=== PATIENT | male | born 1955 | race Caucasian/White ===

== ENCOUNTER 2020-01-31 11:29 | Inpatient (IN) ==
[2020-01-31] MEDS ORDERED: 0.9 % SODIUM CHLORIDE 1,000 ML IV ONE ×2 (11:49→13:16)
--- NOTE | 2020-01-31 11:58 | Emergency Department Note ---
HPI General Chief complaint: Blood Sugar Problem Stated complaint: High blood glucose Time Seen by Provider: 01/31/20 11:48 Source: EMS Mode of arrival: EMS Limitations: no limitations History of Present Illness HPI Narrative: Narrative: 64-year-old male presents the emergency department with elevated blood sugar. Patient is a dialysis patient history of CKD as well as a type I diabetic. Patient is always on since he has been taking normally runs around 160 today they checked it and said it was reading high. He said there is been no illnesses or sicknesses leading. He was due to have his dialysis done today. He did not make it as they sent him here instead. Patient otherwise having no other symptoms that he actually feels well just feels weak and tired and feels like he is needs to get his blood sugar more under control. Patient otherwise has no other complaints. Related Data Home Medications Medication Instructions Recorded Confirmed Insulin Syringe 1/2 mL 30 x /" 1 unit MISCELLANE .COMPLEX 08/20/14 01/09/20 aspirin 81 mg tablet,delayed 81 mg PO QDAY tab 08/20/14 01/09/20 release blood sugar diagnostic 08/20/14 01/09/20 cyanocobalamin (vitamin B-12) 1,000 mcg PO QDAY tab 08/20/14 01/09/20 1,000 mcg tablet B complex-vitamin C-folic acid 0.8 1 tab PO QDAY 12/16/17 01/09/20 mg tablet insulin syringe-needle U-100 03/03/18 01/09/20 pen needle, diabetic 03/03/18 01/09/20 clopidogrel 75 mg tablet 75 mg PO QDAY 11/22/18 01/09/20 acetaminophen 650 mg 1,300 mg PO QHS tab 08/01/19 01/09/20 tablet,extended release insulin glargine 100 unit/mL (3 6 unit SUB-Q BID ml 01/09/20 01/09/20 mL) subcutaneous pen Previous Rx's Medication Instructions Recorded simvastatin 40 mg tablet 40 mg PO QPM #90 tab 10/26/16 glucagon HCl 1 mg/mL solution for 1 mg IM ONCE #1 each 03/24/18 injection buprenorphine 7.5 mcg/hour weekly 1 patch TRANSDERMA Q7D #12 each 11/28/19 transdermal patch ramelteon 8 mg tablet 8 mg PO QHS PRN 30 Days #30 tab 12/21/19 trazodone 50 mg tablet 100 mg PO QHS #180 tab 12/26/19 mirtazapine 30 mg tablet 30 mg PO QHS 90 Days #90 tab 01/03/20 insulin lispro 100 unit/mL See Rx Instructions SUB-Q TID #15 01/09/20 subcutaneous pen ml Allergies Allergy/AdvReac Type Severity Reaction Status Date / Time Zolpidem [From Ambien] AdvReac Mild Insomnia Verified 01/09/20 09:52 Review of Systems ROS ROS Narrative: Narrative: All systems ED: reviewed and negative except as stated. PFSH Narrative Patient History Narrative: Narrative: Medical/Surgical/Family History All Active Problems (Updated 01/31/20 @ 14:25 by Donal Fry DO) Hyperosmolar hyperglycemic state (HHS) (Acute) Acute hyperkalemia (Acute) Poor sleep hygiene (Acute) Circadian rhythm disorder (Acute) Chewing tobacco nicotine dependence (Chronic) CKD (chronic kidney disease) stage V requiring chronic dialysis (Chronic) History of amputation of great toe (Chronic) Foot ulcer (Chronic) Paresthesias (Chronic) Numbness (Chronic) Muscle cramps (Chronic) Opioid dependence (Chronic) Exostosis (Chronic) Onychomycosis (Chronic) Subungual hematoma (Chronic) Callus of foot (Chronic) Skin fissure (Chronic) Hammer toe (Chronic) Chronic osteomyelitis involving ankle and foot (Chronic) Chronic renal insufficiency (Chronic) Arthropathy associated with neurological disorder (Chronic) Polyneuropathy (Chronic) 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) Chronic pain syndrome (Chronic) Vitamin B12 deficiency (Chronic) Type 1 diabetes mellitus with renal manifestations, uncontrolled (Chronic) Tobacco use (Chronic) Legal blindness, as defined in [place] (Chronic) Glaucoma (Chronic) Diabetic retinopathy (Chronic) Contusion of eyeball and orbital tissues, right eye, initial encounter (Chronic) Skin ulcer (Chronic) Chronic ulcer of left heel limited to breakdown of skin (Chronic) Diabetes mellitus with peripheral circulatory disorder (Chronic) History of MRSA infection (Chronic) 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) History of amputation of right foot (Chronic) Pressure ulcer of right heel, stage 2 (Chronic) End-stage renal disease (Chronic) History of hypoglycemia (Chronic) Osteomyelitis of left foot (Chronic) Diabetic foot ulcer (Chronic) Depression (Chronic) Status post amputation of left great toe (Chronic) History of oral surgery (Chronic) History of knee surgery (Chronic) History of hip surgery (Chronic) History of orthopedic surgery (Chronic) History of eye surgery (Chronic) History of colonoscopy (Chronic) History of appendectomy (Chronic) Vitamin D deficiency (Chronic) Chronic toe ulcer (Chronic) Secondary hyperparathyroidism (Chronic) Retinopathy, diabetic, background (Chronic) Renal osteodystrophy (Chronic) Proteinuria (Chronic) DM polyneuropathy (Chronic) Osteoarthrosis, hand (Chronic) Obesity (Chronic) Insomnia (Acute) Hyponatremia (Chronic) Hypertension, essential (Chronic) Hyperlipemia (Chronic) Erectile dysfunction (Chronic) Diabetes mellitus type 1 (Chronic) Depressive disorder (Chronic) Chronic pain (Chronic) Benign prostatic hyperplasia without lower urinary tract symptoms (Chronic) Blindness, legal (Chronic) Amputated toe (Chronic) Amputation, traumatic, toes (Chronic) Medical History 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) Amputated toe (Chronic) 1996-right transmetatarsal 1991- left big toe amputation Amputation, traumatic, toes (Chronic) Arthropathy associated with neurological disorder (Chronic) Benign prostatic hyperplasia without lower urinary tract symptoms (Chronic) Blindness, legal (Chronic) 1992 Callus of foot (Chronic) Both Chewing tobacco nicotine dependence (Chronic) Chronic osteomyelitis involving ankle and foot (Chronic) Chronic pain (Chronic) LE wounds, back pain, neuropathies Chronic pain syndrome (Chronic) Chronic renal insufficiency (Chronic) Chronic toe ulcer (Chronic) Chronic ulcer of left heel limited to breakdown of skin (Chronic) Circadian rhythm disorder (Acute) CKD (chronic kidney disease) stage V requiring chronic dialysis (Chronic) Contusion of eyeball and orbital tissues, right eye, initial encounter (Chronic) Dehydration (Resolved) Depression (Chronic) Depressive disorder (Chronic) Diabetes mellitus type 1 (Chronic) Diabetes mellitus with peripheral circulatory disorder (Chronic) Diabetic foot ulcer (Chronic) Diabetic retinopathy (Chronic) DM polyneuropathy (Chronic) End-stage renal disease (Chronic) Erectile dysfunction (Chronic) Exostosis (Chronic) Foot ulcer (Chronic) Glaucoma (Chronic) Hammer toe (Chronic) History of amputation of great toe (Chronic) Left History of MRSA infection (Chronic) Hyperlipemia (Chronic) Hypertension, essential (Chronic) Hyponatremia (Chronic) Insomnia (Acute) Legal blindness, as defined in [place] (Chronic) Muscle cramps (Chronic) Numbness (Chronic) Obesity (Chronic) Onychomycosis (Chronic) Toenail Opioid dependence (Chronic) Osteoarthrosis, hand (Chronic) Osteomyelitis of left foot (Chronic) Paresthesias (Chronic) Polyneuropathy (Chronic) Poor sleep hygiene (Acute) Pressure ulcer of right heel, stage 2 (Chronic) Proteinuria (Chronic) Renal osteodystrophy (Chronic) Retinopathy, diabetic, background (Chronic) Blind Secondary hyperparathyroidism (Chronic) Skin fissure (Chronic) Skin ulcer (Chronic) Subungual hematoma (Chronic) Tobacco use (Chronic) 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 Yeboah. History of eye surgery (Chronic) 1995 Right eye surgery History of foot surgery (Chronic) History of hip surgery (Chronic) 02/2003 History of knee surgery (Chronic) 1971 Left knee (traumatic injury in football) History of oral surgery (Chronic) 12/2006 Broke teeth and required surgery History of orthopedic surgery (Chronic) Femur Surgery 02/2003 History of total hip replacement (Chronic) History of transmetatarsal amputation of right foot (Chronic) History of vitrectomy (Chronic) S/P arteriovenous (AV) fistula creation (Chronic ~02/11/19) Dr. Rafat Turpin - Construction of right brachial artery to axillary vein arteriovenous graft using Artegraft conduit 05/06/19 - Fistula De-Clot - Dr. Weber Status post amputation of left great toe (Chronic) 1996 & 1991 1996- right transmetatarsal 1991- left big toe amputation Family History Father , age 90 Alcohol abuse Diabetes mellitus Cardiac disease Malignant neoplasm Unknown cancer Osteoarthritis Alzheimer disease Mother , age 62 Alcohol abuse Malignant neoplasm Disorder of thyroid Sister Malignant neoplasm Disorder of thyroid Diabetes mellitus T-cell lymphoma Social History Smoking Status: Smokeless tobacco Alcohol Intake Frequency: holiday/special occasion only Substance Use: does not use Exam Narrative Narrative: Narrative: Vital signs noted General: Awake. Alert. No distress. Skin: Warm. Dry. No rash. HEENT: NCAT. PERRL. EOMI. No conjunctivitis. No nystagmus. No pharyngitis. Membranes moist. No otitis. No rhinitis. Neck: No PTP. Good ROM. No meningeal signs. No stridor. No thyromegaly. No JVD. Cardiovascular: RRR. No murmur. No rubs. No gallops. Respiratory: No respiratory distress. Breath sounds equal. Lungs clear. Kussmal breathing Gastrointestinal: Abdomen soft. No tenderness. No distention. Normal bowel sounds. No palpable organomegaly or masses. Back: No deformity. No CVAT. Musculoskeletal: No tenderness. No swelling. No erythema. No edema. Good peripheral pulses x 4 Lymphatic: No palpable adenopathy. Neurological: No focal neurological deficits observed. General Limitations: no limitations Course Vital Signs Vital signs: Vital Signs Pulse Rate 80 01/31/20 11:30 Respiratory Rate 30 H 01/31/20 11:30 Blood Pressure 85/39 01/31/20 11:30 Pulse Rate 73 01/31/20 12:11 Respiratory Rate 15 01/31/20 12:11 Blood Pressure 133/32 01/31/20 12:11 Pulse Oximetry (%) 93 01/31/20 12:11 [facility] MDM Narrative Medical decision making narrative: Narrative: Patient does have kussmal breathing on exam. Otherwise exam is completely benign. He does have a fissure on the right side that is still functioning. Patient blood sugar read as high. My guess is patient is probably in DKA/HHS. At this time we will give him 2 L of IV fluids to help rehydrate him. We will get basic labs including CBC CMP VBG beta hydroxybutyrate. Patient most likely will need to be admitted for decreasing his blood sugar levels. We will hold off on starting patient on insulin until I receive my potassium. Patient is okay with this plan. Disposition will be pending results. At this time I do not know what caused this as there is been no illnesses leading up to this not sure based on patient this is all secondary to poor diabetes management. Patient is still alert and awake and able to answer all my questions. Patient's labs show patient to be in HHS. The glucose is 1409. The potassium was 8.2 bicarb was 6 sodium 116 creatinine 5.9. Due to this I did speak with the head orthopedic team physician the patient sees Dr. Thomas who recommended giving a an amp of bicarb which was given here in the emergency department as well as 10 unit bolus of insulin and then started on an insulin drip. He said patient will need to be dialyzed today and they will do it once patient is admitted. Patient was actually tried to get out of bed and actually rolled onto his side did hit the right side of his head as well as his left knee I did get x-rays which were negative I got a CAT scan of the head which also was negative. Patient otherwise is still alert and talking. Patient is going to be admitted to the ICU to the hospitalist Dr. Ovalle who agreed to admit the patient. EKG had no acute changes. I did speak with Dr. Thomas about giving Kayexalate as well as albuterol he said hold off as the dialysis can probably help fix that quicker. Patient will be admitted in critical condition to the ICU. Total critical care time of 35 min including performance of history and physical exam, review of results, re-examinations, time spent documenting, grey stock recorder, review of old records, discussions with patient and family, discussions with remediation bioanalytics consultant(s), discussion with admitting physician, completion of admission/transfer paperwork. This does not include time for any separately documented procedures. Lab Data Result diagrams: 01/31/20 11:58 01/31/20 11:57 Labs: Lab Results 01/31/20 01/31/20 01/31/20 Range/Units 11:58 11:58 12:12 WBC 13.1 H (4.5-11.0) K/mcL RBC 2.80 L (4.50-5.90) M/mcL Hgb 8.9 L (13.5-16.5) g/dL Hct 33.5 L (41.0-55.0) % POC Hct 29 L (41-55) % MCV 119.6 H (80.0-100.0) fL MCH 31.8 (26.0-34.0) pg MCHC 26.6 L (31.0-36.0) g/dL RDW 14.0 (11.5-14.5) % Plt Count 257 (140-440) K/mcL MPV 12.8 H (7.4-10.4) fL Neut % (Auto) 90.7 H (38.0-78.0) % Lymph % (Auto) 1.6 L (15.0-49.0) % Mckenzie % (Auto) 7.5 (1.0-12.0) % Eos % (Auto) 0 (0.0-7.0) % Baso % (Auto) 0.2 (0.0-2.0) % Lymph # (Auto) 0.21 L (1.50-4.80) K/mcL Mckenzie # (Auto) 0.98 H (0.10-0.90) K/mcL Eos # (Auto) 0 (0.00-0.70) K/mcL Baso # (Auto) 0.02 (0.00-0.20) K/mcL Absolute Neutrophils 11.84 H (1.80-8.00) K/mcL ABG Methemoglobin 0.2 L (0.4-1.5) % VBG pH 7.09 L* (7.32-7.42) U VBG pCO2 13.9 L* (41.0-51.0) mmHg VBG pO2 150.8 H (25.0-40.0) mmHg VBG HCO3 4.1 L* (24.0-28.0) mmol/L VBG Total CO2 4.6 L* (25.0-29.0) mmol/L VBG O2 Saturation 87.5 H (40.0-70.0) % VBG Base Excess -24 L (-2-3) Carboxyhemoglobin 10.9 H (0.0-1.5) % THgb Total Hemoglobin 8.6 L (13.5-16.5) gm/Dl POC Sodium 116 L* (133-145) mEq/L POC Potassium 8.2 H* (3.3-5.1) mEql/L POC Chloride 89 L (96-108) mEq/L POC Total CO2 6 L* (22-30) mmol/L POC BUN 88 H (6-20) mg/dL POC Creatinine 5.9 H* (0.6-1.2) mg/dL POC Glucose > 700 H* mg/dL POC WB Ioniz Calcium 0.97 L (1.16-1.32) mmEq/L EKG Data EKG #1: EKG results narrative: EKG is done at 1208 interpreted by myself shows normal sinus rhythm rate of 73, UT 156, QRS 112, QTc 48. There is no acute ST changes no acute T wave changes no other signs of ischemia. No signs of hyper heart rate, heart strain, heart block. No WPW/Brugada/HOCM. Impression normal sinus EKG no acute change Discharge Plan Patient/Caregiver Discharge Instructions Pt seen by LIEUTENANT COLONEL/PA only: No Clinical Impression: Hyperosmolar hyperglycemic state (HHS), Acute hyperkalemia Patient Disposition: Xfer As Inpt ([facility]) Condition: Critical Follow up with: Celestino Larkin PA-C [Primary Care Provider] - Prescriptions: No Action simvastatin 40 mg tablet 40 mg PO QPM Qty: 90 RF: 0 buprenorphine 7.5 mcg/hour patch weekly 1 patch TRANSDERMA Q7D Qty: 12 RF: 0 ramelteon 8 mg tablet 8 mg PO QHS PRN (Reason: sleep) 30 Days Qty: 30 RF: 2 trazodone 50 mg tablet 100 mg PO QHS Qty: 180 RF: 0 mirtazapine 30 mg tablet 30 mg PO QHS 90 Days Qty: 90 RF: 1 (DME) blood sugar diagnostic strip See Dose Instructions dose .ROUTE .MEDSUPPLY RF: 0 aspirin 81 mg tablet,delayed release (DR/EC) 81 mg PO QDAY RF: 0 Insulin Syringe 1/2 mL 30 x 5/16" 1 unit MISCELLANE .COMPLEX RF: 0 cyanocobalamin (vitamin B-12) 1,000 mcg tablet 1,000 mcg PO QDAY RF: 0 glucagon HCl 1 mg recon soln 1 mg IM ONCE Qty: 1 RF: 1 clopidogrel [Plavix] 75 mg tablet 75 mg PO QDAY RF: 0 Lantus Solostar U-100 Insulin 100 unit/mL (3 mL) insulin pen 6 unit SUB-Q BID RF: 0 Humalog KwikPen Insulin 100 unit/mL insulin pen See Rx Instructions SUB-Q TID Qty: 15 RF: 2 B complex-vitamin C-folic acid [Jessica-Porsha] 0.8 mg tablet 1 tab PO QDAY RF: 0 acetaminophen [Tylenol Arthritis Pain] 650 mg tablet extended release 1,300 mg PO QHS RF: 0 (DME) insulin syringe-needle U-100 1 EACH syringe 0 unit .Route .MEDSUPPLY RF: 0 (DME) pen needle, diabetic 1 EACH needle 0 unit .Route .MEDSUPPLY RF: 0
[2020-01-31 12:37] LABS: POC Blood Urea Nitrogen 88 mg/dL (6-20); POC CO2 6 mmol/L (22-30); POC Calcium, Ionized 0.97 mmEq/L (1.16-1.32); POC Chloride 89 mEq/L (96-108); POC Creatinine 5.9 mg/dL (0.6-1.2); POC Glucose, Random > 700 mg/dL; POC Hematocrit 29 % (41-55); POC Potassium 8.2 mEql/L (3.3-5.1); POC Sodium 116 mEq/L (133-145)
[2020-01-31] MEDS ORDERED: INSULIN REGULAR, HUMAN 1 UNIT/0.01 ML UNIT IV ONE (12:41)
[2020-01-31] MEDS ORDERED: SODIUM BICARBONATE 50 MEQ/50 ML VIAL IV ONE (12:41)
[2020-01-31] MEDS ORDERED: INSULIN REGULAR, HUMAN 50 UNIT in 0.9 % SODIUM CHLORIDE 99.5 ML IV SCH ×3 (12:45→21:30)
[2020-01-31 12:48] LABS: ABG Methemoglobin 0.2 % (0.4-1.5); Total Hemoglobin 8.6 gm/Dl (13.5-16.5); VBG Base Excess -24 (-2-3); VBG HCO3 4.1 mmol/L (24.0-28.0); VBG Oxygen Saturation 87.5 % (40.0-70.0); VBG PCO2 13.9 mmHg (41.0-51.0); VBG PH 7.09 U (7.32-7.42); VBG PO2 150.8 mmHg (25.0-40.0); VBG Total CO2 4.6 mmol/L (25.0-29.0)
--- NOTE | 2020-01-31 13:01 | Cat Scan Report ---
CLINICAL INFORMATION: Trauma COMPARISON: None. TECHNIQUE: 2.5 mm helical slices were obtained in the skull base to vertex. Following reconstruction, axial reformatted images were reviewed at bone and parenchymal windows. The exam was performed using radiation dose optimization techniques including, but not limited to, automated exposure control, adjustment of the mA and/or kV according to patient size and use of iterative reconstruction technique. FINDINGS: The ventricles, sulci, fissures, and cisterns are normal in size and configuration for age. No extra-axial fluid collections are identified. The cerebrum, brainstem and cerebellum are unremarkable. There is no evidence of hemorrhage, mass effect, or edema. Bone windows show no osseous abnormality. IMPRESSION: Normal head CT without contrast for age. Incidental note: The left ocular lens is displaced into the posterior chamber of ocular globe. There is also atrophy of the right ocular globe with sclerosis in the sclera and retina calcification. Interpreted and Authenticated by: Herman Dyson 01/31/20
--- NOTE | 2020-01-31 13:07 | XRay Report ---
CLINICAL INFORMATION: fall COMPARISON: None. FINDINGS: No fracture identified. Mild patellofemoral and mild tibiofemoral degenerative change noted. There is chondrocalcinosis in the menisci. Mild diffuse soft tissue swelling noted. IMPRESSION: Chondrocalcinosis in menisci. No evidence of fracture. Interpreted and Authenticated by: Herman Dyson 01/31/20
[2020-01-31 13:24] LABS: Basophils # (Auto) 0.02 K/mcL (0.00-0.20); Basophils % (Auto) 0.2 % (0.0-2.0); Eosinophils # (Auto) 0 K/mcL (0.00-0.70); Eosinophils % (Auto) 0 % (0.0-7.0); Hematocrit 33.5 % (41.0-55.0); Hemoglobin 8.9 g/dL (13.5-16.5); Lymphocytes # (Auto) 0.21 K/mcL (1.50-4.80); Lymphocytes % (Auto) 1.6 % (15.0-49.0); Mean Cell Volume 119.6 fL (80.0-100.0); Mean Corpuscular HGB Conc 26.6 g/dL (31.0-36.0); Mean Platelet Volume 12.8 fL (7.4-10.4); Monocytes # (Auto) 0.98 K/mcL (0.10-0.90); Monocytes % (Auto) 7.5 % (1.0-12.0); Neutrophils % (Auto) 90.7 % (38.0-78.0); Platelet Count 257 K/mcL (140-440); WBC 13.1 K/mcL (4.5-11.0)
[2020-01-31 14:22] LABS: ALT/SGPT 39 U/L (<40); AST/SGOT 35 U/L (<40); Albumin 3.7 gm/dL (3.2-5.2); Albumin/Globulin Ratio 1.7 (1.0-2.3); Alkaline Phosphatase 184 U/L (39-117); Bilirubin,Total 0.2 mg/dL (0.1-1.0); Blood Urea Nitrogen 74 mg/dL (8-23); Calcium 8.3 mg/dL (8.6-10.4); Carbon Dioxide 5 mmol/L (22-30); Chloride 75 mmol/L (96-108); Globulin 2.2 gm/dL (2.2-3.7); Glomerular Filtration Rate 11; Glucose 1409 mg/dL (70-105)
[2020-01-31] MEDS ORDERED: RAMELTEON 8 MG TABLET PO PRN ×2 (15:05→15:30)
[2020-01-31] MEDS ORDERED: BUPRENORPHINE TRANSDERMA SCH (15:15)
--- NOTE | 2020-01-31 15:36 | XRay Report ---
CLINICAL INFORMATION: DKA COMPARISON: None. FINDINGS: The heart is moderately enlarged. Mediastinum is unremarkable. Upper lobe pulmonary vessels are mildly distended and there is minimal interstitial edema. Small infiltrate seen in the right medial base IMPRESSION: Mild CHF or volume overload. Small infiltrate right medial base Interpreted and Authenticated by: Herman Dyson 01/31/20
--- NOTE | 2020-01-31 15:42 | Emergency Department Note ---
HPI General Chief complaint: Blood Sugar Problem Stated complaint: High blood glucose Time Seen by Provider: 01/31/20 11:48 Source: EMS Mode of arrival: EMS Limitations: no limitations History of Present Illness HPI Narrative: Narrative: Pt is a 64yo male Related Data Home Medications Medication Instructions Recorded Confirmed blood sugar diagnostic 08/20/14 01/09/20 insulin syringe-needle U-100 03/03/18 01/09/20 pen needle, diabetic 03/03/18 01/09/20 clopidogrel 75 mg tablet 75 mg PO QDAY 11/22/18 01/31/20 insulin lispro [Humalog KwikPen See Rx Instructions .ROUTE .COMPLEX 01/31/20 01/31/20 Insulin] lisinopril 40 mg PO QDAY 01/31/20 01/31/20 vit B comp no.3-[id number]-U-biotin 1 tab PO QDAY 01/31/20 01/31/20 [Jessica-Porsha Rx] Previous Rx's Medication Instructions Recorded simvastatin 40 mg tablet 40 mg PO QPM #90 tab 10/26/16 buprenorphine 7.5 mcg/hour weekly 1 patch TRANSDERMA Q7D #12 each 11/28/19 transdermal patch ramelteon 8 mg tablet 8 mg PO QHS PRN 30 Days #30 tab 12/21/19 trazodone 50 mg tablet 100 mg PO QHS #180 tab 12/26/19 mirtazapine 30 mg tablet 30 mg PO QHS 90 Days #90 tab 01/03/20 Allergies Allergy/AdvReac Type Severity Reaction Status Date / Time Zolpidem [From Ambien] AdvReac Mild Insomnia Verified 01/09/20 09:52 Review of Systems ROS ROS Narrative: Narrative: PFSH Narrative Patient History Narrative: Narrative: Medical/Surgical/Family History All Active Problems (Updated 01/31/20 @ 14:25 by Donal Fry DO) Hyperosmolar hyperglycemic state (HHS) (Acute) Acute hyperkalemia (Acute) Poor sleep hygiene (Acute) Circadian rhythm disorder (Acute) Chewing tobacco nicotine dependence (Chronic) CKD (chronic kidney disease) stage V requiring chronic dialysis (Chronic) History of amputation of great toe (Chronic) Foot ulcer (Chronic) Paresthesias (Chronic) Numbness (Chronic) Muscle cramps (Chronic) Opioid dependence (Chronic) Exostosis (Chronic) Onychomycosis (Chronic) Subungual hematoma (Chronic) Callus of foot (Chronic) Skin fissure (Chronic) Hammer toe (Chronic) Chronic osteomyelitis involving ankle and foot (Chronic) Chronic renal insufficiency (Chronic) Arthropathy associated with neurological disorder (Chronic) Polyneuropathy (Chronic) 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) Chronic pain syndrome (Chronic) Vitamin B12 deficiency (Chronic) Type 1 diabetes mellitus with renal manifestations, uncontrolled (Chronic) Tobacco use (Chronic) Legal blindness, as defined in [place] (Chronic) Glaucoma (Chronic) Diabetic retinopathy (Chronic) Contusion of eyeball and orbital tissues, right eye, initial encounter (Chronic) Skin ulcer (Chronic) Chronic ulcer of left heel limited to breakdown of skin (Chronic) Diabetes mellitus with peripheral circulatory disorder (Chronic) History of MRSA infection (Chronic) 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) History of amputation of right foot (Chronic) Pressure ulcer of right heel, stage 2 (Chronic) End-stage renal disease (Chronic) History of hypoglycemia (Chronic) Osteomyelitis of left foot (Chronic) Diabetic foot ulcer (Chronic) Depression (Chronic) Status post amputation of left great toe (Chronic) History of oral surgery (Chronic) History of knee surgery (Chronic) History of hip surgery (Chronic) History of orthopedic surgery (Chronic) History of eye surgery (Chronic) History of colonoscopy (Chronic) History of appendectomy (Chronic) Vitamin D deficiency (Chronic) Chronic toe ulcer (Chronic) Secondary hyperparathyroidism (Chronic) Retinopathy, diabetic, background (Chronic) Renal osteodystrophy (Chronic) Proteinuria (Chronic) DM polyneuropathy (Chronic) Osteoarthrosis, hand (Chronic) Obesity (Chronic) Insomnia (Acute) Hyponatremia (Chronic) Hypertension, essential (Chronic) Hyperlipemia (Chronic) Erectile dysfunction (Chronic) Diabetes mellitus type 1 (Chronic) Depressive disorder (Chronic) Chronic pain (Chronic) Benign prostatic hyperplasia without lower urinary tract symptoms (Chronic) Blindness, legal (Chronic) Amputated toe (Chronic) Amputation, traumatic, toes (Chronic) Medical History 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) Amputated toe (Chronic) 1996-right transmetatarsal 1991- left big toe amputation Amputation, traumatic, toes (Chronic) Arthropathy associated with neurological disorder (Chronic) Benign prostatic hyperplasia without lower urinary tract symptoms (Chronic) Blindness, legal (Chronic) 1992 Callus of foot (Chronic) Both Chewing tobacco nicotine dependence (Chronic) Chronic osteomyelitis involving ankle and foot (Chronic) Chronic pain (Chronic) LE wounds, back pain, neuropathies Chronic pain syndrome (Chronic) Chronic renal insufficiency (Chronic) Chronic toe ulcer (Chronic) Chronic ulcer of left heel limited to breakdown of skin (Chronic) Circadian rhythm disorder (Acute) CKD (chronic kidney disease) stage V requiring chronic dialysis (Chronic) Contusion of eyeball and orbital tissues, right eye, initial encounter (Chronic) Dehydration (Resolved) Depression (Chronic) Depressive disorder (Chronic) Diabetes mellitus type 1 (Chronic) Diabetes mellitus with peripheral circulatory disorder (Chronic) Diabetic foot ulcer (Chronic) Diabetic retinopathy (Chronic) DM polyneuropathy (Chronic) End-stage renal disease (Chronic) Erectile dysfunction (Chronic) Exostosis (Chronic) Foot ulcer (Chronic) Glaucoma (Chronic) Hammer toe (Chronic) History of amputation of great toe (Chronic) Left History of MRSA infection (Chronic) Hyperlipemia (Chronic) Hypertension, essential (Chronic) Hyponatremia (Chronic) Insomnia (Acute) Legal blindness, as defined in [place] (Chronic) Muscle cramps (Chronic) Numbness (Chronic) Obesity (Chronic) Onychomycosis (Chronic) Toenail Opioid dependence (Chronic) Osteoarthrosis, hand (Chronic) Osteomyelitis of left foot (Chronic) Paresthesias (Chronic) Polyneuropathy (Chronic) Poor sleep hygiene (Acute) Pressure ulcer of right heel, stage 2 (Chronic) Proteinuria (Chronic) Renal osteodystrophy (Chronic) Retinopathy, diabetic, background (Chronic) Blind Secondary hyperparathyroidism (Chronic) Skin fissure (Chronic) Skin ulcer (Chronic) Subungual hematoma (Chronic) Tobacco use (Chronic) 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 Yeboah. History of eye surgery (Chronic) 1995 Right eye surgery History of foot surgery (Chronic) History of hip surgery (Chronic) 02/2003 History of knee surgery (Chronic) 1971 Left knee (traumatic injury in football) History of oral surgery (Chronic) 12/2006 Broke teeth and required surgery History of orthopedic surgery (Chronic) Femur Surgery 02/2003 History of total hip replacement (Chronic) History of transmetatarsal amputation of right foot (Chronic) History of vitrectomy (Chronic) S/P arteriovenous (AV) fistula creation (Chronic ~02/11/19) Dr. Rafat Turpin - Construction of right brachial artery to axillary vein arteriovenous graft using Artegraft conduit 05/06/19 - Fist[facility] [place]-[facility] - Dr. Weber Status post amputation of left great toe (Chronic) 1996 & 1991 1996- right transmetatarsal 1991- left big toe amputation Family History Father , age 90 Alcohol abuse Diabetes mellitus Cardiac disease Malignant neoplasm Unknown cancer Osteoarthritis Alzheimer disease Mother , age 62 Alcohol abuse Malignant neoplasm Disorder of thyroid Sister Malignant neoplasm Disorder of thyroid Diabetes mellitus T-cell lymphoma Social History Smoking Status: Smokeless tobacco Alcohol Intake Frequency: holiday/special occasion only Substance Use: does not use Exam Narrative Narrative: Narrative: General Limitations: no limitations Course Vital Signs Vital signs: Vital Signs Pulse Rate 80 01/31/20 11:30 Respiratory Rate 30 H 01/31/20 11:30 Blood Pressure 85/39 01/31/20 11:30 Pulse Rate 75 01/31/20 15:16 Respiratory Rate 15 01/31/20 15:16 Blood Pressure 170/63 01/31/20 15:16 Pulse Oximetry (%) 100 01/31/20 15:16 [facility] MDM Narrative Medical decision making narrative: Narrative: Lab Data Result diagrams: 01/31/20 11:58 01/31/20 11:57 Labs: Lab Results 01/31/20 01/31/20 01/31/20 Range/Units 11:57 11:58 11:58 WBC 13.1 H (4.5-11.0) K/mcL RBC 2.80 L (4.50-5.90) M/mcL Hgb 8.9 L (13.5-16.5) g/dL Hct 33.5 L (41.0-55.0) % POC Hct 29 L (41-55) % MCV 119.6 H (80.0-100.0) fL MCH 31.8 (26.0-34.0) pg MCHC 26.6 L (31.0-36.0) g/dL RDW 14.0 (11.5-14.5) % Plt Count 257 (140-440) K/mcL MPV 12.8 H (7.4-10.4) fL Neut % (Auto) 90.7 H (38.0-78.0) % Lymph % (Auto) 1.6 L (15.0-49.0) % Elbert % (Auto) 7.5 (1.0-12.0) % Eos % (Auto) 0 (0.0-7.0) % Baso % (Auto) 0.2 (0.0-2.0) % Lymph # (Auto) 0.21 L (1.50-4.80) K/mcL Elbert # (Auto) 0.98 H (0.10-0.90) K/mcL Eos # (Auto) 0 (0.00-0.70) K/mcL Baso # (Auto) 0.02 (0.00-0.20) K/mcL Absolute Neutrophils 11.84 H (1.80-8.00) K/mcL ABG Methemoglobin (0.4-1.5) % VBG pH (7.32-7.42) U VBG pCO2 (41.0-51.0) mmHg VBG pO2 (25.0-40.0) mmHg VBG HCO3 (24.0-28.0) mmol/L VBG Total CO2 (25.0-29.0) mmol/L VBG O2 Saturation (40.0-70.0) % VBG Base Excess (-2-3) Carboxyhemoglobin (0.0-1.5) % THgb Total Hemoglobin (13.5-16.5) gm/Dl POC Sodium 116 L* (133-145) mEq/L Sodium 121 L (133-145) mmol/L POC Potassium 8.2 H* (3.3-5.1) mEql/L Potassium 7.2 H* (3.3-5.1) mmol/L POC Chloride 89 L (96-108) mEq/L Chloride 75 L (96-108) mmol/L Carbon Dioxide 5 L* (22-30) mmol/L POC Total CO2 6 L* (22-30) mmol/L Anion Gap 41.0 H (8.0-16.0) POC BUN 88 H (6-20) mg/dL BUN 74 H (8-23) mg/dL Creatinine 5.2 H* (0.7-1.2) mg/dL POC Creatinine 5.9 H* (0.6-1.2) mg/dL GFR Calculation 11 Glucose 1409 H* (70-105) mg/dL POC Glucose > 700 H* mg/dL Calcium 8.3 L (8.6-10.4) mg/dL POC WB Ioniz Calcium 0.97 L (1.16-1.32) mmEq/L Total Bilirubin 0.2 (0.1-1.0) mg/dL AST 35 (<40) U/L ALT 39 (<40) U/L Alkaline Phosphatase 184 H (39-117) U/L Total Protein 5.9 (5.9-8.4) gm/dL Albumin 3.7 (3.2-5.2) gm/dL Globulin 2.2 (2.2-3.7) gm/dL Albumin/Globulin Ratio 1.7 (1.0-2.3) Beta-Hydroxybutyrate 16.10 H (<0.27) mmol/L 01/31/20 Range/Units 12:12 WBC (4.5-11.0) K/mcL RBC (4.50-5.90) M/mcL Hgb (13.5-16.5) g/dL Hct (41.0-55.0) % POC Hct (41-55) % MCV (80.0-100.0) fL MCH (26.0-34.0) pg MCHC (31.0-36.0) g/dL RDW (11.5-14.5) % Plt Count (140-440) K/mcL MPV (7.4-10.4) fL Neut % (Auto) (38.0-78.0) % Lymph % (Auto) (15.0-49.0) % Elbert % (Auto) (1.0-12.0) % Eos % (Auto) (0.0-7.0) % Baso % (Auto) (0.0-2.0) % Lymph # (Auto) (1.50-4.80) K/mcL Elbert # (Auto) (0.10-0.90) K/mcL Eos # (Auto) (0.00-0.70) K/mcL Baso # (Auto) (0.00-0.20) K/mcL Absolute Neutrophils (1.80-8.00) K/mcL ABG Methemoglobin 0.2 L (0.4-1.5) % VBG pH 7.09 L* (7.32-7.42) U VBG pCO2 13.9 L* (41.0-51.0) mmHg VBG pO2 150.8 H (25.0-40.0) mmHg VBG HCO3 4.1 L* (24.0-28.0) mmol/L VBG Total CO2 4.6 L* (25.0-29.0) mmol/L VBG O2 Saturation 87.5 H (40.0-70.0) % VBG Base Excess -24 L (-2-3) Carboxyhemoglobin 10.9 H (0.0-1.5) % THgb Total Hemoglobin 8.6 L (13.5-16.5) gm/Dl POC Sodium (133-145) mEq/L Sodium (133-145) mmol/L POC Potassium (3.3-5.1) mEql/L Potassium (3.3-5.1) mmol/L POC Chloride (96-108) mEq/L Chloride (96-108) mmol/L Carbon Dioxide (22-30) mmol/L POC Total CO2 (22-30) mmol/L Anion Gap (8.0-16.0) POC BUN (6-20) mg/dL BUN (8-23) mg/dL Creatinine (0.7-1.2) mg/dL POC Creatinine (0.6-1.2) mg/dL GFR Calculation Glucose (70-105) mg/dL POC Glucose mg/dL Calcium (8.6-10.4) mg/dL POC WB Ioniz Calcium (1.16-1.32) mmEq/L Total Bilirubin (0.1-1.0) mg/dL AST (<40) U/L ALT (<40) U/L Alkaline Phosphatase (39-117) U/L Total Protein (5.9-8.4) gm/dL Albumin (3.2-5.2) gm/dL Globulin (2.2-3.7) gm/dL Albumin/Globulin Ratio (1.0-2.3) Beta-Hydroxybutyrate (<0.27) mmol/L Discharge Plan Patient/Caregiver Discharge Instructions Pt seen by [employer] TECHNICIAN/PA only: No Clinical Impression: Hyperosmolar hyperglycemic state (HHS), Acute hyperkalemia Patient Disposition: Xfer As Inpt ([facility]) Condition: Critical Follow up with: Celestino Larkin PA-C [Primary Care Provider] - Prescriptions: No Action simvastatin 40 mg tablet 40 mg PO QPM Qty: 90 RF: 0 buprenorphine 7.5 mcg/hour patch weekly 1 patch TRANSDERMA Q7D Qty: 12 RF: 0 ramelteon 8 mg tablet 8 mg PO QHS PRN (Reason: sleep) 30 Days Qty: 30 RF: 2 trazodone 50 mg tablet 100 mg PO QHS Qty: 180 RF: 0 mirtazapine 30 mg tablet 30 mg PO QHS 90 Days Qty: 90 RF: 1 (DME) blood sugar diagnostic strip See Dose Instructions dose .ROUTE .MEDSUPPLY RF: 0 clopidogrel [Plavix] 75 mg tablet 75 mg PO QDAY RF: 0 (DME) insulin syringe-needle U-100 1 EACH syringe 0 unit .Route .MEDSUPPLY RF: 0 (DME) pen needle, diabetic 1 EACH needle 0 unit .Route .MEDSUPPLY RF: 0 lisinopril 40 mg Tablet 40 mg PO QDAY RF: 0 insulin lispro [Humalog KwikPen Insulin] 100 unit/mL insulin pen See Rx Instructions .ROUTE .COMPLEX RF: 0 Jessica-Porsha Rx 1-60-300 mg-mg-mcg Tablet 1 tab PO QDAY RF: 0
[2020-01-31 15:44] LABS: POC Blood Urea Nitrogen 69 mg/dL (6-20); POC CO2 10 mmol/L (22-30); POC Calcium, Ionized 1.07 mmEq/L (1.16-1.32); POC Chloride 90 mEq/L (96-108); POC Creatinine 5.7 mg/dL (0.6-1.2); POC Glucose, Random 700 mg/dL (70-105); POC Hematocrit 30 % (41-55); POC Potassium 4.7 mEql/L (3.3-5.1); POC Sodium 123 mEq/L (133-145)
--- NOTE | 2020-01-31 16:03 | Internal Med History&Physical ---
HPI History of Present Illness Patient information: Note initiated : 01/31/20 at 3:53 pm Service Date, if different from initiated Date: [] Patient: Andrew Fowler 64 y/o M admitted on for High blood glucose. Chief Complaint: [] History of present illness: Mr. Fowler is a 64 year old M with a hx of type 1 diabetes, end-stage renal disease on dialysis (Wednesday, Wednesday and Wednesday), legal blindness, and chronic anemia who presented to the ER due to fatigue. Patient is a poor historian. Patient feels very tired today. As per patient, he injected his Lantus this morning 16 units. Normally he has a dialysis on Wednesday, Wednesday and Wednesday. He received last dialysis on Wednesday. In the ER, pH 7.09, potassium 8.2, and blood glucose 1400. EKG no T wave change. When I saw this patient in the ER, other than the symptoms mentioned above, he denied headache, dizziness, fever, chills, nausea, vomiting, chest pain, shortness of breath, abdominal pain, or dysuria. Review of Systems Review of systems: Positive for fatigue. All other systems were reviewed and are negative PFSH PFSH All Active Problems Hyperosmolar hyperglycemic state (HHS) (Acute) Acute hyperkalemia (Acute) Poor sleep hygiene (Acute) Circadian rhythm disorder (Acute) Chewing tobacco nicotine dependence (Chronic) CKD (chronic kidney disease) stage V requiring chronic dialysis (Chronic) History of amputation of great toe (Chronic) Foot ulcer (Chronic) Paresthesias (Chronic) Numbness (Chronic) Muscle cramps (Chronic) Opioid dependence (Chronic) Exostosis (Chronic) Onychomycosis (Chronic) Subungual hematoma (Chronic) Callus of foot (Chronic) Skin fissure (Chronic) Hammer toe (Chronic) Chronic osteomyelitis involving ankle and foot (Chronic) Chronic renal insufficiency (Chronic) Arthropathy associated with neurological disorder (Chronic) Polyneuropathy (Chronic) 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) Chronic pain syndrome (Chronic) Vitamin B12 deficiency (Chronic) Type 1 diabetes mellitus with renal manifestations, uncontrolled (Chronic) Tobacco use (Chronic) Legal blindness, as defined in [place] (Chronic) Glaucoma (Chronic) Diabetic retinopathy (Chronic) Contusion of eyeball and orbital tissues, right eye, initial encounter (Chronic) Skin ulcer (Chronic) Chronic ulcer of left heel limited to breakdown of skin (Chronic) Diabetes mellitus with peripheral circulatory disorder (Chronic) History of MRSA infection (Chronic) 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) History of amputation of right foot (Chronic) Pressure ulcer of right heel, stage 2 (Chronic) End-stage renal disease (Chronic) History of hypoglycemia (Chronic) Osteomyelitis of left foot (Chronic) Diabetic foot ulcer (Chronic) Depression (Chronic) Status post amputation of left great toe (Chronic) History of oral surgery (Chronic) History of knee surgery (Chronic) History of hip surgery (Chronic) History of orthopedic surgery (Chronic) History of eye surgery (Chronic) History of colonoscopy (Chronic) History of appendectomy (Chronic) Vitamin D deficiency (Chronic) Chronic toe ulcer (Chronic) Secondary hyperparathyroidism (Chronic) Retinopathy, diabetic, background (Chronic) Renal osteodystrophy (Chronic) Proteinuria (Chronic) DM polyneuropathy (Chronic) Osteoarthrosis, hand (Chronic) Obesity (Chronic) Insomnia (Acute) Hyponatremia (Chronic) Hypertension, essential (Chronic) Hyperlipemia (Chronic) Erectile dysfunction (Chronic) Diabetes mellitus type 1 (Chronic) Depressive disorder (Chronic) Chronic pain (Chronic) Benign prostatic hyperplasia without lower urinary tract symptoms (Chronic) Blindness, legal (Chronic) Amputated toe (Chronic) Amputation, traumatic, toes (Chronic) Medical History 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) Amputated toe (Chronic) 1996-right transmetatarsal 1991- left big toe amputation Amputation, traumatic, toes (Chronic) Arthropathy associated with neurological disorder (Chronic) Benign prostatic hyperplasia without lower urinary tract symptoms (Chronic) Blindness, legal (Chronic) 1992 Callus of foot (Chronic) Both Chewing tobacco nicotine dependence (Chronic) Chronic osteomyelitis involving ankle and foot (Chronic) Chronic pain (Chronic) LE wounds, back pain, neuropathies Chronic pain syndrome (Chronic) Chronic renal insufficiency (Chronic) Chronic toe ulcer (Chronic) Chronic ulcer of left heel limited to breakdown of skin (Chronic) Circadian rhythm disorder (Acute) CKD (chronic kidney disease) stage V requiring chronic dialysis (Chronic) Contusion of eyeball and orbital tissues, right eye, initial encounter (Chronic) Dehydration (Resolved) Depression (Chronic) Depressive disorder (Chronic) Diabetes mellitus type 1 (Chronic) Diabetes mellitus with peripheral circulatory disorder (Chronic) Diabetic foot ulcer (Chronic) Diabetic retinopathy (Chronic) DM polyneuropathy (Chronic) End-stage renal disease (Chronic) Erectile dysfunction (Chronic) Exostosis (Chronic) Foot ulcer (Chronic) Glaucoma (Chronic) Hammer toe (Chronic) History of amputation of great toe (Chronic) Left History of MRSA infection (Chronic) Hyperlipemia (Chronic) Hypertension, essential (Chronic) Hyponatremia (Chronic) Insomnia (Acute) Legal blindness, as defined in [place] (Chronic) Muscle cramps (Chronic) Numbness (Chronic) Obesity (Chronic) Onychomycosis (Chronic) Toenail Opioid dependence (Chronic) Osteoarthrosis, hand (Chronic) Osteomyelitis of left foot (Chronic) Paresthesias (Chronic) Polyneuropathy (Chronic) Poor sleep hygiene (Acute) Pressure ulcer of right heel, stage 2 (Chronic) Proteinuria (Chronic) Renal osteodystrophy (Chronic) Retinopathy, diabetic, background (Chronic) Blind Secondary hyperparathyroidism (Chronic) Skin fissure (Chronic) Skin ulcer (Chronic) Subungual hematoma (Chronic) Tobacco use (Chronic) 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 Yeboah. History of eye surgery (Chronic) 1995 Right eye surgery History of foot surgery (Chronic) History of hip surgery (Chronic) 02/2003 History of knee surgery (Chronic) 1971 Left knee (traumatic injury in football) History of oral surgery (Chronic) 12/2006 Broke teeth and required surgery History of orthopedic surgery (Chronic) Femur Surgery 02/2003 History of total hip replacement (Chronic) History of transmetatarsal amputation of right foot (Chronic) History of vitrectomy (Chronic) S/P arteriovenous (AV) fistula creation (Chronic ~02/11/19) Dr. Rafat Turpin - Construction of right brachial artery to axillary vein arteriovenous graft using Artegraft conduit 05/06/19 - Fistula De-Clot - Dr. Weber Status post amputation of left great toe (Chronic) 1996 & 1991 1996- right transmetatarsal 1991- left big toe amputation Family History Father , age 90 Alcohol abuse Diabetes mellitus Cardiac disease Malignant neoplasm Unknown cancer Osteoarthritis Alzheimer disease Mother , age 62 Alcohol abuse Malignant neoplasm Disorder of thyroid Sister Malignant neoplasm Disorder of thyroid Diabetes mellitus T-cell lymphoma Social History marital status: physical activity: none smoking status: Smokeless tobacco smoking status stop date: 02/09/92 alcohol intake frequency: holiday/special occasion only substance use type: does not use additional history: Pt. uses chewing tobacco. MEDS/ALLERGIES Home Medications and Allergies Home Medications Medication Instructions Recorded Confirmed Type blood sugar diagnostic 08/20/14 01/09/20 History simvastatin 40 mg tablet 40 mg PO QPM #90 tab 10/26/16 01/31/20 Rx insulin syringe-needle U-100 03/03/18 01/09/20 History pen needle, diabetic 03/03/18 01/09/20 History clopidogrel 75 mg tablet 75 mg PO QDAY 11/22/18 01/31/20 History buprenorphine 7.5 mcg/hour weekly 1 patch TRANSDERMA Q7D #12 each 11/28/19 01/31/20 Rx transdermal patch ramelteon 8 mg tablet 8 mg PO QHS PRN 30 Days #30 tab 12/21/19 01/31/20 Rx trazodone 50 mg tablet 100 mg PO QHS #180 tab 12/26/19 01/31/20 Rx mirtazapine 30 mg tablet 30 mg PO QHS 90 Days #90 tab 01/03/20 01/31/20 Rx insulin lispro [Humalog KwikPen See Rx Instructions .ROUTE .COMPLEX 01/31/20 01/31/20 History Insulin] lisinopril 40 mg PO QDAY 01/31/20 01/31/20 History vit B comp no.8-kcenc-A-biotin 1 tab PO QDAY 01/31/20 01/31/20 History [Jessica-Porsha Rx] Allergies Allergy/AdvReac Type Severity Reaction Status Date / Time Zolpidem [From Ambien] AdvReac Mild Insomnia Verified 01/09/20 09:52 EXAM Constitutional Vitals: Pulse Resp BP Pulse Ox 75 15 170/63 100 01/31/20 15:16 01/31/20 15:16 01/31/20 15:16 01/31/20 15:16 Additional findings Additional findings: Physical exam: General: No acute distress Eye: EMOI, no conjunctival injection. HEENT: supple, no JVD or thyroid megaly Chest: No tenderness Heart: RRR, no gallop Lungs: Rhonchi bilateral Abdomen: Normal bowel sounds, soft, no tenderness Extremities: no edema, no cyanosis or clubbing. Right toes amputated. Left great toe amputated. Neurology: A+O x 3, no focal neurological deficits Psych: Normal mood DATA Data Completed and Pending Labs: Labs from last 24 hours 01/31/20 01/31/20 01/31/20 15:32 15:32 15:31 WBC RBC Hgb Hct POC Hct Pending MCV MCH MCHC RDW Plt Count MPV Neut % (Auto) Lymph % (Auto) [place] % (Auto) Eos % (Auto) Baso % (Auto) Lymph # (Auto) [place] # (Auto) Eos # (Auto) Baso # (Auto) Absolute Neutrophils ABG Methemoglobin VBG pH VBG pCO2 VBG pO2 VBG HCO3 VBG Total CO2 VBG O2 Saturation VBG Base Excess Carboxyhemoglobin Total Hemoglobin POC Sodium Pending Sodium Pending Pending POC Potassium Pending Potassium Pending Pending POC Chloride Pending Chloride Pending Pending Carbon Dioxide Pending Pending POC Total CO2 Pending Anion Gap Pending Pending POC BUN Pending BUN Pending Pending Creatinine Pending Pending POC Creatinine Pending GFR Calculation Pending Pending Glucose Pending Pending POC Glucose Pending Uric Acid Pending Calcium Pending Pending POC WB Ioniz Calcium Pending Phosphorus Pending Pending Magnesium Pending Total Bilirubin Pending Pending Direct Bilirubin Pending GGT Pending AST Pending Pending ALT Pending Pending Alkaline Phosphatase Pending Pending Lactate Dehydrogenase Pending Troponin T Pending Total Protein Pending Pending Albumin Pending Pending Globulin Pending Pending Albumin/Globulin Ratio Pending Pending Triglycerides Pending Beta-Hydroxybutyrate Pending 01/31/20 01/31/20 01/31/20 12:12 11:58 11:58 WBC 13.1 H RBC 2.80 L Hgb 8.9 L Hct 33.5 L POC Hct 29 L MCV 119.6 H MCH 31.8 MCHC 26.6 L RDW 14.0 Plt Count 257 MPV 12.8 H Neut % (Auto) 90.7 H Lymph % (Auto) 1.6 L [place] % (Auto) 7.5 Eos % (Auto) 0 Baso % (Auto) 0.2 Lymph # (Auto) 0.21 L [place] # (Auto) 0.98 H Eos # (Auto) 0 Baso # (Auto) 0.02 Absolute Neutrophils 11.84 H ABG Methemoglobin 0.2 L VBG pH 7.09 L* VBG pCO2 13.9 L* VBG pO2 150.8 H VBG HCO3 4.1 L* VBG Total CO2 4.6 L* VBG O2 Saturation 87.5 H VBG Base Excess -24 L Carboxyhemoglobin 10.9 H Total Hemoglobin 8.6 L POC Sodium 116 L* Sodium POC Potassium 8.2 H* Potassium POC Chloride 89 L Chloride Carbon Dioxide POC Total CO2 6 L* Anion Gap POC BUN 88 H BUN Creatinine POC Creatinine 5.9 H* GFR Calculation Glucose POC Glucose > 700 H* Uric Acid Calcium POC WB Ioniz Calcium 0.97 L Phosphorus Magnesium Total Bilirubin Direct Bilirubin GGT AST ALT Alkaline Phosphatase Lactate Dehydrogenase Troponin T Total Protein Albumin Globulin Albumin/Globulin Ratio Triglycerides Beta-Hydroxybutyrate 01/31/20 11:57 WBC RBC Hgb Hct POC Hct 30 L MCV MCH MCHC RDW Plt Count MPV Neut % (Auto) Lymph % (Auto) [place] % (Auto) Eos % (Auto) Baso % (Auto) Lymph # (Auto) [place] # (Auto) Eos # (Auto) Baso # (Auto) Absolute Neutrophils ABG Methemoglobin VBG pH VBG pCO2 VBG pO2 VBG HCO3 VBG Total CO2 VBG O2 Saturation VBG Base Excess Carboxyhemoglobin Total Hemoglobin POC Sodium 123 L Sodium 121 L POC Potassium 4.7 Potassium 7.2 H* POC Chloride 90 L Chloride 75 L Carbon Dioxide 5 L* POC Total CO2 10 L Anion Gap 41.0 H POC BUN 69 H BUN 74 H Creatinine 5.2 H* POC Creatinine 5.7 H* GFR Calculation 11 Glucose 1409 H* POC Glucose 700 H Uric Acid Calcium 8.3 L POC WB Ioniz Calcium 1.07 L Phosphorus Magnesium Total Bilirubin 0.2 Direct Bilirubin GGT AST 35 ALT 39 Alkaline Phosphatase 184 H Lactate Dehydrogenase Troponin T Total Protein 5.9 Albumin 3.7 Globulin 2.2 Albumin/Globulin Ratio 1.7 Triglycerides Beta-Hydroxybutyrate 16.10 H A/P Narrative A/P Narrative: 1. DKA and Hyperosmolar hyperglycemic state (HHS) pH 7.09 AG 41 Glucose level 1409 Calculated osmolity 313 serum osmolity Corrected Na 137-147 In the ER, 2L NS was given. Discussed with nephrology Dr. Thomas, pt will have emergent HD now. no more ivf and no insulin drip now. (hope to slowly decrease glucose) Will decide insulin and further treatment based on BMP and glucose level after HD. 2. Type 1 diabetes mellitus with diabetic neuropathy and retinopathy will start lantus and insulin ss 3. ESRD on HD (MW) Dr. Thomas is on board. Really appreciate it. 4. Legal blindness PT/OT/CM 5. Anemia, most likely due to CKD Dr. Thomas is on board. Repeat CBC in am 6. Medical non compliacne DM education 7. Hyperkalemia EKG no significant T wave change As per Dr. Thomas, HCO3 was given. Will have emergent HD Repeat BMP 8. DVT prophylaxis: Heparin 9. 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
[2020-01-31 16:28] LABS: Phosphorous 5.8 mg/dL (2.5-4.5)
[2020-01-31] MEDS ORDERED: LIDOCAINE 2% URO-JET 5 ML JEL.PF.APP UR ONE (16:45)
[2020-01-31 17:08] LABS: ALT/SGPT 41 U/L (<40); AST/SGOT 59 U/L (<40); Albumin 3.4 gm/dL (3.2-5.2); Albumin/Globulin Ratio 1.4 (1.0-2.3); Alkaline Phosphatase 182 U/L (39-117); Bilirubin,Direct < 0.2 mg/dL (<0.3); Bilirubin,Total 0.2 mg/dL (0.1-1.0); Blood Urea Nitrogen 72 mg/dL (8-23); Carbon Dioxide 7 mmol/L (22-30); Chloride 79 mmol/L (96-108); Globulin 2.5 gm/dL (2.2-3.7); Glomerular Filtration Rate 10; Glucose 1143 mg/dL (70-105); Lactate Dehydrogenase 271 U/L (135-225); Phosphorous 5.9 mg/dL (2.5-4.5); Triglycerides 525 mg/dL (<150); Uric Acid 6.4 mg/dL (2.5-8.0)
[2020-01-31 17:12] LABS: Beta Hydroxybutyrate 12.35 mmol/L (<0.27)
[2020-01-31] MEDS: MIRTAZAPINE 15 MG TABLET PO SCH ×2 (17:59→20:34)
[2020-01-31] MEDS ORDERED: LORazepam 2 MG/ML VIAL IV ONE (18:23)
[2020-01-31] MEDS ORDERED: HALOPERIDOL LACTATE 5 MG/ML VIAL IV ONE (18:23)
[2020-01-31] MEDS ORDERED: LORazepam 2 MG/ML VIAL ONE (18:33)
[2020-01-31] MEDS ORDERED: HALOPERIDOL LACTATE 5 MG/ML VIAL ONE (18:33)
[2020-01-31 20:35] LABS: Appearance,Urine HAZY (Clear); Bilirubin,Urine Negative (Negative); Color,Urine YELLOW; Culture Indicated,Urine No; Glucose,Urine (UA) >=500 mg/dL (Negative); Ketones,Urine 20 mg/dL (Negative); Leukocyte Esterase,Urine Negative /ug (Negative); Nitrate,Urine Negative (Negative); Protein,Urine >=500 mg/dL (Negative); Specific Gravity,Urine 1.018 (1.000-1.035); Urine Amorphous Crystals FEW /hpf; Urine RBC 3 /hpf (0-3); Urine Squamous Epithelial Cell < 1 /hpf (0-4); Urine WBC 5 /hpf (0-4); Urobilinogen,Urine Negative
[2020-01-31] MEDS ORDERED: MIRTAZAPINE 15 MG TABLET PO SCH (21:00)
[2020-01-31] MEDS ORDERED: HEPARIN 5,000 UNIT/ML VIAL SQ SCH (21:00)
[2020-01-31] MEDS ORDERED: SIMVASTATIN 40 MG TABLET PO SCH ×2 (21:00)
[2020-01-31] MEDS ORDERED: traZODone HCL 50 MG TABLET PO SCH ×3 (21:00)
[2020-01-31 21:07] LABS: ALT/SGPT 44 U/L (<40); AST/SGOT 88 U/L (<40); Albumin 3.4 gm/dL (3.2-5.2); Albumin/Globulin Ratio 1.5 (1.0-2.3); Alkaline Phosphatase 170 U/L (39-117); Bilirubin,Total 0.3 mg/dL (0.1-1.0); Blood Urea Nitrogen 26 mg/dL (8-23); Calcium 8.2 mg/dL (8.6-10.4); Carbon Dioxide 22 mmol/L (22-30); Chloride 88 mmol/L (96-108); Globulin 2.3 gm/dL (2.2-3.7); Glomerular Filtration Rate 30; Glucose 477 mg/dL (70-105)
[2020-01-31] MEDS: 0.9 % SODIUM CHLORIDE 10 ML SYRINGE IV SCH (21:22)
[2020-01-31] MEDS: HEPARIN 5,000 UNIT/ML VIAL SQ SCH (21:24)
[2020-01-31] MEDS ORDERED: 0.9 % SODIUM CHLORIDE 250 ML IV ONE (21:27)
[2020-01-31] MEDS ORDERED: DEXTROSE 5%-NS W/20MEQ KCL 1,000 ML IV SCH (21:30)
[2020-01-31] MEDS ORDERED: 0.9 % SODIUM CHLORIDE 10 ML SYRINGE IV SCH (22:00)
[2020-01-31] MEDS: 0.9 % SODIUM CHLORIDE 250 ML IV SCH (22:34)
--- NOTE | 2020-01-31 22:55 | Event Note ---
Event Note Event Note: Pt's BP 70+. HR 63. He had HD this afternoon. 250ml NS bolus was given. BP is not improved. I do not feel he has infection at this moment. Procalcitonin, Lactic acid, troponin Dopamine drip to keep MAP 60-65. D5NSCl 50mg/hr.
[2020-01-31] MEDS ORDERED: DOPamine 400 MG in PREMIX 1 BAG IV SCH (23:00)
[2020-01-31] MEDS ORDERED: 0.9 % SODIUM CHLORIDE 250 ML IV SCH (23:00)
[2020-01-31] MEDS ORDERED: VASOPRESSIN 20 UNIT/ML VIAL ONE (23:02)
[2020-01-31] MEDS: LORazepam 2 MG/ML VIAL IV PRN (23:35)
[2020-02-01] MEDS ORDERED: DIGOXIN 500 MCG/2 ML AMPUL IV ONE ×2 (00:49→00:56)
[2020-02-01] MEDS: VASOPRESSIN 20 UNIT in DEXTROSE 5% IN WATER 99 ML IV SCH ×2 (01:02→09:14)
[2020-02-01] MEDS ORDERED: METOPROLOL TARTRATE 5 MG/5 ML VIAL IV SCH (01:15)
[2020-02-01] MEDS: 0.9 % SODIUM CHLORIDE 250 ML IV SCH ×4 (01:17→13:20)
[2020-02-01] MEDS ORDERED: METOPROLOL TARTRATE 5 MG/5 ML VIAL IV PRN (01:38)
[2020-02-01 02:00] LABS: Creatine Kinase MB 67.7 ng/mL (<6.7)
[2020-02-01] MEDS: METOPROLOL TARTRATE 5 MG/5 ML VIAL IV SCH ×2 (02:06→02:07)
[2020-02-01 02:38] LABS: Blood Urea Nitrogen 24 mg/dL (8-23); Calcium 8.3 mg/dL (8.6-10.4); Carbon Dioxide 17 mmol/L (22-30); Chloride 88 mmol/L (96-108); Glomerular Filtration Rate 27; Glucose 546 mg/dL (70-105)
[2020-02-01] MEDS: 0.9 % SODIUM CHLORIDE 10 ML SYRINGE IV SCH ×2 (05:08→13:59)
[2020-02-01 05:11] LABS: Hematocrit 26.9 % (41.0-55.0); Hemoglobin 8.8 g/dL (13.5-16.5); Mean Cell Volume 98.9 fL (80.0-100.0); Mean Corpuscular HGB Conc 32.7 g/dL (31.0-36.0); Mean Platelet Volume 12.2 fL (7.4-10.4); Platelet Count 186 K/mcL (140-440); RBC 2.72 M/mcL (4.50-5.90); Red Cell Distribution Width 13.7 % (11.5-14.5); WBC 9.1 K/mcL (4.5-11.0)
[2020-02-01 05:20] LABS: ALT/SGPT 41 U/L (<40); AST/SGOT 82 U/L (<40); Albumin 3.1 gm/dL (3.2-5.2); Albumin/Globulin Ratio 1.5 (1.0-2.3); Alkaline Phosphatase 157 U/L (39-117); Bilirubin,Total 0.2 mg/dL (0.1-1.0); Blood Urea Nitrogen 28 mg/dL (8-23); Calcium 8.1 mg/dL (8.6-10.4); Carbon Dioxide 12 mmol/L (22-30); Chloride 88 mmol/L (96-108); Globulin 2.1 gm/dL (2.2-3.7); Glomerular Filtration Rate 24; Glucose 623 mg/dL (70-105)
[2020-02-01] MEDS ORDERED: INSULIN REGULAR, HUMAN 1 UNIT/0.01 ML UNIT ONE (05:34)
[2020-02-01 06:18] LABS: Hemoglobin A1C 8.5 % Hgb (4.0-6.0)
[2020-02-01] MEDS: INSULIN REGULAR, HUMAN 50 UNIT in 0.9 % SODIUM CHLORIDE 99.5 ML IV SCH ×2 (07:39→11:31)
[2020-02-01 08:20] LABS: Eosinophils % (Manual) 1 % (0-7); Lymphocytes % 6 % (15-49); Monocytes % (Manual) 7 % (1-12); Platelet Estimate NORMAL (Normal); RBC Morphology NORMAL (Normal); Segmented Neutrophils % 86 % (38-78)
[2020-02-01 08:40] LABS: ABG Methemoglobin 0.2 % (0.4-1.5); Total Hemoglobin 8.4 gm/Dl (13.5-16.5); VBG Base Excess -12 (-2-3); VBG HCO3 12.3 mmol/L (24.0-28.0); VBG Oxygen Saturation 90.6 % (40.0-70.0); VBG PCO2 22.8 mmHg (41.0-51.0); VBG PH 7.35 U (7.32-7.42); VBG PO2 139.1 mmHg (25.0-40.0)
[2020-02-01] MEDS: HEPARIN 5,000 UNIT/ML VIAL SQ SCH (08:57)
[2020-02-01] MEDS ORDERED: VITAMIN B COMPLEX 1 CAPSULE PO SCH ×2 (09:00)
[2020-02-01] MEDS ORDERED: CLOPIDOGREL 75 MG TABLET PO SCH ×2 (09:00)
[2020-02-01] MEDS ORDERED: ATORVASTATIN 40 MG TABLET PO SCH (09:00)
--- NOTE | 2020-02-01 09:09 | Nephrology Progress Note ---
SUBJECTIVE Subjective Patient information: Note initiated : 02/01/20 at 9:05 am Service Date, if different from initiated Date: [] Patient: Andrew Fowler 64 y/o M admitted on 01/31/20 for High blood glucose. Chief Complaint: [] obtunded. Has been getting sedation. Apparently he has been agitated all night. Constitutional Vitals: Vital Signs Temp Pulse Resp BP Pulse Ox 100.4 F H 65 16 98/82 99 02/01/20 06:02 02/01/20 06:02 02/01/20 06:02 02/01/20 06:02 02/01/20 06:02 Period Temp Pulse Resp BP Sys/Barr Pulse Ox Last 24 Hr 97.3 F-100.4 F 57-96 10-30 47-170/24-96 86-100 Intake and Output 01/31/20 02/01/20 02/01/20 21:59 05:59 13:59 Intake Total 1001 430 106 Output Total 800 0 Balance 201 430 106 Weight 181 lb 11.2 oz Intake & Output: Intake & Output 01/31/20 02/01/20 02/01/20 21:59 05:59 13:59 Intake Total 1001 430 106 Output Total 800 0 Balance 201 430 106 Weight 181 lb 11.2 oz Intake: IV 1001 330 106 Sodium Chloride 0.9% 1,000 ml @ 1000 Wide Open IV BOLUS ONE Rx#: [id number] Sodium Chloride 0.9% 250 ml @ 261 68 20 mls/hr IV .[id number] CAMILA Rx#: [id number] DOPamine 400 MG In Premix 1 Bag 38 @ 5 MCG/KG/MIN 15.453 mls/hr IV .[id number] CAMILA Rx#:[id number] HumuLIN R 50 UNIT In Sodium 1 38 Chloride 0.9% 99.5 ml @ 5 UNIT/ HR 10 mls/hr IV DUR CAMILA Rx#: [id number] Vasostrict 20 Unit In Dextrose 31 5% in Water 99 ml @ 0.02 UNIT/ MIN 6 mls/hr IV Q17H CAMILA Rx#: [id number] Oral 0 100 Output: Urine Catheter Amount 800 Void Amount 0 0 Hemodialysis UF 0 Other: Urine Appearance Uretheral (Palafox) Clear Urine Color Uretheral (Palafox) Pale lungs clear Cardiac regular abdomen soft nt no edema A/P Narrative A/P Narrative: ESRD. Had dialysis last night. I have written orders for tomorrow. Electrolytes look ok today. DKA. Continued insulin drip. Getting slighly more acidotic. Elevated troponin. Probable demand ischemia. Time Spent With Patient Time: Total time spent is greater than 50% in coordination of care (as documented) at patient's floor/unit and/or counseling patient:
--- NOTE | 2020-02-01 09:42 | Consultation ---
DATE OF CONSULTATION: 01/31/2020 HISTORY OF PRESENT ILLNESS: The patient is a 64-year-old gentleman with history of type 1 diabetes, end-stage renal disease on hemodialysis Mondays, Wednesdays, and Fridays. He is legally blind and he is usually very with it and very organized and able to take care of himself. He does have assistance at home. He manages his sugar fairly well, although he is a brittle diabetic. He presented to the emergency room, feeling poorly and tired all day. He missed his dialysis treatment. He takes Lantus 16 units and he has been having trouble with his sugars being erratic with that, but almost once a month he gets hypoglycemic episodes. In the emergency room, he had a pH of 7.09 with a potassium of 8.2 and a blood sugar over 1400 ___. For that reason, a renal consult was obtained. PAST MEDICAL HISTORY: 1. Type 1 diabetes with all the complications of diabetes including diabetic retinopathy, neuropathy, and nephropathy. He is a very brittle diabetic. 2. History of amputation of his great toe. 3. End-stage renal disease on hemodialysis Mondays, Wednesdays, and Fridays. 4. Polyneuropathy. 5. History of tobacco use. He chews. 6. Legally blind. 7. History of hip surgery. 8. History of ____. 9. Secondary hyperparathyroidism. PAST SURGICAL HISTORY: Well documented in the chart. FAMILY HISTORY: Father at age of 90 with alcohol use and history of osteoarthritis and Alzheimer's. Mom at the age of 62 with alcohol and malignant neoplasm. Sister has malignant neoplasm and diabetes. SOCIAL HISTORY: He is and he chews tobacco. There is no history of drug use. MEDICATIONS ON ADMISSION: 1. Lantus. 2. Simvastatin 40 mg twice daily. 3. Clopidogrel 75 mg daily. 4. Ramelteon 8 mg one tablet at night. 5. Trazodone 100 mg at night. 6. Mirtazapine 30 mg daily. 7. Lisinopril 40 mg daily. 8. Vitamin B complex one tablet once daily. ALLERGIES: AMBIEN. PHYSICAL EXAMINATION: GENERAL: Alert and oriented, no distress. VITAL SIGNS: Blood pressures have been in 110-160 systolic with diastolic in the 60s. Pulse rates ___. HEENT: NC/AT. He does have a right eye which is completely traumatized and he is blind. NECK: Supple. No jugular venous distention. No lymphadenopathy. No thyromegaly. CHEST: Decreased air entry bilaterally. No rales or rhonchi heard. CARDIAC: S1, S2. No S3, S4. ABDOMEN: Soft, nontender. EXTREMITIES: Did not show any evidence of edema. LABORATORY DATA: White count is 13.1 with hemoglobin of 8.8 and platelet count of 257. Sodium 123, potassium 7.2, chloride of 90, CO2 of 5, BUN of 74, creatinine 4.2. ASSESSMENT AND PLAN: 1. Hyperkalemia with severe metabolic acidosis. He is in diabetic ketoacidosis (DKA). Dialysis will help to correct some of these problems. I have given him insulin and bicarbonate in the emergency room. We will do four hours of dialysis with a potassium of 2.0. This is likely to be potassium depleted, but with the correction of acidosis his potassium had improved dramatically. 2. End-stage renal disease on hemodialysis. He missed his dialysis treatment today, and he will have dialysis as an inpatient as above. 3. Multiple other problems. Management per Hospitalist. Val Job ID: [id number] Doc ID: [id number] Kai Thomas MD
[2020-02-01 09:50] LABS: Blood Urea Nitrogen 32 mg/dL (8-23); Calcium 8.2 mg/dL (8.6-10.4); Carbon Dioxide 11 mmol/L (22-30); Chloride 90 mmol/L (96-108); Glomerular Filtration Rate 18; Glucose 575 mg/dL (70-105)
[2020-02-01] MEDS ORDERED: 0.9 % SODIUM CHLORIDE 250 ML IV ONE (10:35)
[2020-02-01] MEDS ORDERED: MAGNESIUM SULFATE 8.12 MEQ in DEXTROSE 5% IN WATER 50 ML IV ONE (11:18)
[2020-02-01] MEDS ORDERED: AMIODARONE 150 MG in DEXTROSE 5% IN WATER 50 ML IV ONE (11:52)
[2020-02-01 12:03] LABS: ABG Methemoglobin 0.2 % (0.4-1.5); Total Hemoglobin 8.5 gm/Dl (13.5-16.5); VBG Base Excess -7 (-2-3); VBG HCO3 17.2 mmol/L (24.0-28.0); VBG Oxygen Saturation 91.9 % (40.0-70.0); VBG PH 7.39 U (7.32-7.42); VBG PO2 114.6 mmHg (25.0-40.0); VBG Total CO2 18.1 mmol/L (25.0-29.0)
--- NOTE | 2020-02-01 12:08 | Discharge Summary ---
Discharge Provider Provider Patient information: Note initiated : 02/01/20 at 11:52 am Service Date, if different from initiated Date: [] Patient: Andrew Fowler 64 y/o M admitted on 01/31/20 for High blood glucose. Chief Complaint: [] Date of admission: 01/31/20 15:53 Primary care physician: Celestino Larkin PA-C Consults: 01/31/20 Consult to Physician [CONS] Stat Comment: Consulting Provider: Kai Thomas Reason For Exam: Physician to Consult Consult to Physician [CONS] Stat Comment: Consulting Provider: Kai Thomas Reason For Exam: Physician to Consult Consult to Physician [CONS] Stat Comment: Consulting Provider: Irina Ovalle Reason For Exam: Physician to Consult Discharge Meds Discharge Medications Home Medications blood sugar diagnostic 08/20/14 [History Confirmed 01/09/20 Last Taken 03/02/18] insulin syringe-needle U-100 03/03/18 [History Confirmed 01/09/20 Last Taken Unknown] pen needle, diabetic 03/03/18 [History Confirmed 01/09/20 Last Taken 03/02/18] clopidogrel 75 mg tablet 75 mg PO QDAY 11/22/18 [History Confirmed 01/31/20 Last Taken Unknown] ramelteon 8 mg tablet 8 mg PO QHS PRN 30 Days #30 tab 12/21/19 [Rx Confirmed 01/31/20 Last Taken Unknown] mirtazapine 30 mg tablet 30 mg PO QHS 90 Days #90 tab 01/03/20 [Rx Confirmed 01/31/20 Last Taken Unknown] insulin lispro [Humalog KwikPen Insulin] See Rx Instructions .ROUTE .COMPLEX 01/31/20 [History Confirmed 01/31/20 Last Taken Unknown] atorvastatin 40 mg PO DAILY #30 tab 02/01/20 [Rx Last Taken Unknown] heparin (porcine) 5,000 unit SUBCUT Q12 10 Days #20 ml 02/01/20 [Rx Last Taken Unknown] lorazepam 0.5 mg IV Q4-6HP PRN 2 Days #3 ml 02/01/20 [Rx Last Taken Unknown] metoprolol tartrate 2.5 mg IV Q5M PRN #2 ml 02/01/20 [Rx Last Taken Unknown] pantoprazole 40 mg IV QDAY #10 each 02/01/20 [Rx Last Taken Unknown] sodium chloride 0.9 % (flush) [Monoject Prefill Advanced NS] 10 ml IV UD PRN #500 ml 02/01/20 [Rx Last Taken Unknown] trazodone 50 mg PO QHS #1 tab 02/01/20 [Rx Last Taken Unknown] COURSE Hospital Course Hospital course: Mr. Fowler is a 64 year old M with a hx of type 1 diabetes, end-stage renal disease on dialysis (Wednesday, Wednesday and Wednesday), legal blindness, and chronic anemia who presented to the ER due to fatigue. Patient is a poor historian. Patient feels very tired today. As per patient, he injected his Lantus this mor ericka 16 units. Normally he has a dialysis on Wednesday, Wednesday and Wednesday. He received last dialysis on Wednesday. In the ER, pH 7.09, potassium 8.2, and blood glucose 1400. EKG no T wave change. When I saw this patient in the ER, other than the symptoms mentioned above, he denied headache, dizziness, fever, chills, nausea, vomiting, chest pain, shortness of breath, abdominal pain, or dysuria. 1. DKA and Hyperosmolar hyperglycemic state (HHS) pH 7.09 AG 41 Glucose level 1409 Calculated osmolity 313 serum osmolity Corrected Na 137-147 In the ER, 2L NS was given. Discussed with nephrology Dr. Thomas, pt will have emergent HD now. no more ivf and no insulin drip now. (hope to slowly decrease glucose) After HD, his BG went down to around 500. We maintained BG at around 500 last night. Today we will continue insulin drip to gradually decrease BG (will run following DKA protocol). His AG 31 today. 2. Type 1 diabetes mellitus with diabetic neuropathy and retinopathy will start lantus and insulin ss 3. ESRD on HD (MWF) Pt received HD yesteray afternoon. Dr. Thomas is on board. 4. Legal blindness PT/OT/CM 5. Anemia, most likely due to CKD Dr. Thomas is on board. Repeat CBC in am 6. Medical non compliacne DM education 7. Hyperkalemia resolved EKG no significant T wave change As per Dr. Thomas, HCO3 was given. Will have emergent HD Repeat BMP 8. Hypotension BP went down which started yesterday afternoon. He is on vasopressin. 9. Cardiac Arrhythmia Paroxysmal atrial fibrillation - digoxin 125mcg x 1 was given - switched to SR. Non-sustained VT - amoidarone 150mg x 1 was loaded. 10. 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 I spoke to pediatric psychiatrist Dr Lyn at [facility] who accepted the pt. Pt will be transferred by air. Updated to and discussed with son Valeria who fully understood the very critical condition and poor outcome. I mentioned to Valeria that pt could before he gets to the hospital. Valeria agreed with the plan. Discharge diagnosis: DKA, Acute CHF due to ischemia? Time Spent with Patient Time attestation: Total time spent providing and/or coordinating discharge services: EXAM Constitutional Vitals: Temp Pulse Resp BP Pulse Ox 98.0 F 65 16 92/38 96 02/01/20 08:05 02/01/20 11:01 02/01/20 11:01 02/01/20 11:01 02/01/20 11:01 Additional findings Additional findings: Physical exam: General: No acute distress Eye: no conjunctival injection. HEENT: no JVD or thyroid megaly, right IJ venous line in place. Chest: NO abnormalities Heart: irregular, no gallop Lungs: Rhonchi bilateral Abdomen: Normal bowel sounds, soft Extremities: no edema, no cyanosis or clubbing. Right toes amputated. Left great toe amputated. Neurology: sleeping (ativan was given due to agitation), no focal neurological deficits Psych: sleeping Discharge Data Data Completed and Pending Labs on day of discharge: Labs from last 24 hours 02/01/20 02/01/20 02/01/20 11:32 11:32 11:32 WBC RBC Hgb Hct POC Hct MCV MCH MCHC RDW Plt Count MPV Neut % (Auto) Lymph % (Auto) [place] % (Auto) Eos % (Auto) Baso % (Auto) Lymph # (Auto) [place] # (Auto) Eos # (Auto) Baso # (Auto) Seg Neutrophils % Lymphocytes % Monocytes % (Manual) Eosinophils % (Manual) Absolute Neutrophils Platelet Estimate RBC Morphology ABG Methemoglobin Pending VBG pH Pending VBG pCO2 Pending VBG pO2 Pending VBG HCO3 Pending VBG Total CO2 Pending VBG O2 Saturation Pending VBG Base Excess Pending VBG Lactic Acid Carboxyhemoglobin Pending Total Hemoglobin Pending POC Sodium Sodium Pending POC Potassium Potassium Pending POC Chloride Chloride Pending Carbon Dioxide Pending POC Total CO2 Anion Gap Pending POC BUN BUN Pending Creatinine Pending POC Creatinine GFR Calculation Pending Glucose Pending POC Glucose Hemoglobin A1c Estim Average Glucose Uric Acid Calcium Pending POC WB Ioniz Calcium Phosphorus Magnesium Total Bilirubin Direct Bilirubin GGT AST ALT Alkaline Phosphatase Lactate Dehydrogenase CK-MB (CK-2) Troponin T Pending NT-Pro-B Natriuret Pep Total Protein Albumin Globulin Albumin/Globulin Ratio Triglycerides Beta-Hydroxybutyrate Procalcitonin Urine Color Urine Appearance Urine pH Ur Specific [place] Urine Protein Urine Glucose (UA) Urine Ketones Urine Occult Blood Urine Nitrate Urine Bilirubin Urine Urobilinogen Ur Leukocyte Esterase Urine RBC Urine WBC Ur Squamous Epith Cells Amorphous Crystals Urine Bacteria Ur Culture Indicated? 02/01/20 02/01/20 02/01/20 08:11 08:11 04:10 WBC RBC Hgb Hct POC Hct MCV MCH MCHC RDW Plt Count MPV Neut % (Auto) Lymph % (Auto) [place] % (Auto) Eos % (Auto) Baso % (Auto) Lymph # (Auto) [place] # (Auto) Eos # (Auto) Baso # (Auto) Seg Neutrophils % Lymphocytes % Monocytes % (Manual) Eosinophils % (Manual) Absolute Neutrophils Platelet Estimate RBC Morphology ABG Methemoglobin 0.2 L VBG pH 7.35 VBG pCO2 22.8 L VBG pO2 139.1 H VBG HCO3 12.3 L VBG Total CO2 13.0 L VBG O2 Saturation 90.6 H VBG Base Excess -12 L VBG Lactic Acid Carboxyhemoglobin 7.9 H Total Hemoglobin 8.4 L POC Sodium Sodium 132 L POC Potassium Potassium 3.9 POC Chloride Chloride 90 L Carbon Dioxide 11 L POC Total CO2 Anion Gap 31.0 H POC BUN BUN 32 H Creatinine 3.3 H POC Creatinine GFR Calculation 18 Glucose 575 H* POC Glucose Hemoglobin A1c Estim Average Glucose Uric Acid Calcium 8.2 L POC WB Ioniz Calcium Phosphorus Magnesium 1.8 Total Bilirubin Direct Bilirubin GGT AST ALT Alkaline Phosphatase Lactate Dehydrogenase CK-MB (CK-2) Troponin T NT-Pro-B Natriuret Pep Total Protein Albumin Globulin Albumin/Globulin Ratio Triglycerides Beta-Hydroxybutyrate Procalcitonin Urine Color Urine Appearance Urine pH Ur Specific [place] Urine Protein Urine Glucose (UA) Urine Ketones Urine Occult Blood Urine Nitrate Urine Bilirubin Urine Urobilinogen Ur Leukocyte Esterase Urine RBC Urine WBC Ur Squamous Epith Cells Amorphous Crystals Urine Bacteria Ur Culture Indicated? 02/01/20 02/01/20 02/01/20 04:10 04:10 04:10 WBC RBC Hgb Hct POC Hct MCV MCH MCHC RDW Plt Count MPV Neut % (Auto) Lymph % (Auto) [place] % (Auto) Eos % (Auto) Baso % (Auto) Lymph # (Auto) [place] # (Auto) Eos # (Auto) Baso # (Auto) Seg Neutrophils % Lymphocytes % Monocytes % (Manual) Eosinophils % (Manual) Absolute Neutrophils Platelet Estimate RBC Morphology ABG Methemoglobin VBG pH VBG pCO2 VBG pO2 VBG HCO3 VBG Total CO2 VBG O2 Saturation VBG Base Excess VBG Lactic Acid Carboxyhemoglobin Total Hemoglobin POC Sodium Sodium 130 L POC Potassium Potassium 4.8 POC Chloride Chloride 88 L Carbon Dioxide 12 L POC Total CO2 Anion Gap 30.0 H POC BUN BUN 28 H Creatinine 2.7 H POC Creatinine GFR Calculation 24 Glucose 623 H* POC Glucose Hemoglobin A1c 8.5 H Estim Average Glucose 197 Uric Acid Calcium 8.1 L POC WB Ioniz Calcium Phosphorus Magnesium Total Bilirubin 0.2 Direct Bilirubin GGT AST 82 H ALT 41 H Alkaline Phosphatase 157 H Lactate Dehydrogenase CK-MB (CK-2) Troponin T 1.66 H* NT-Pro-B Natriuret Pep 76690.0 H Total Protein 5.2 L Albumin 3.1 L Globulin 2.1 L Albumin/Globulin Ratio 1.5 Triglycerides Beta-Hydroxybutyrate Procalcitonin Urine Color Urine Appearance Urine pH Ur Specific [place] Urine Protein Urine Glucose (UA) Urine Ketones Urine Occult Blood Urine Nitrate Urine Bilirubin Urine Urobilinogen Ur Leukocyte Esterase Urine RBC Urine WBC Ur Squamous Epith Cells Amorphous Crystals Urine Bacteria Ur Culture Indicated? 02/01/20 02/01/20 02/01/20 04:10 00:08 00:08 WBC 9.1 RBC 2.72 L Hgb 8.8 L Hct 26.9 L POC Hct MCV 98.9 MCH 32.4 MCHC 32.7 RDW 13.7 Plt Count 186 MPV 12.2 H Neut % (Auto) Lymph % (Auto) [place] % (Auto) Eos % (Auto) Baso % (Auto) Lymph # (Auto) [place] # (Auto) Eos # (Auto) Baso # (Auto) Seg Neutrophils % 86 H Lymphocytes % 6 L Monocytes % (Manual) 7 Eosinophils % (Manual) 1 Absolute Neutrophils Platelet Estimate Normal RBC Morphology Normal ABG Methemoglobin VBG pH VBG pCO2 VBG pO2 VBG HCO3 VBG Total CO2 VBG O2 Saturation VBG Base Excess VBG Lactic Acid Carboxyhemoglobin Total Hemoglobin POC Sodium Sodium POC Potassium Potassium POC Chloride Chloride Carbon Dioxide POC Total CO2 Anion Gap POC BUN BUN Creatinine POC Creatinine GFR Calculation Glucose POC Glucose Hemoglobin A1c Estim Average Glucose Uric Acid Calcium POC WB Ioniz Calcium Phosphorus Magnesium Total Bilirubin Direct Bilirubin GGT AST ALT Alkaline Phosphatase Lactate Dehydrogenase CK-MB (CK-2) 67.7 H Troponin T NT-Pro-B Natriuret Pep 71681.0 H Total Protein Albumin Globulin Albumin/Globulin Ratio Triglycerides Beta-Hydroxybutyrate Procalcitonin Urine Color Urine Appearance Urine pH Ur Specific [place] Urine Protein Urine Glucose (UA) Urine Ketones Urine Occult Blood Urine Nitrate Urine Bilirubin Urine Urobilinogen Ur Leukocyte Esterase Urine RBC Urine WBC Ur Squamous Epith Cells Amorphous Crystals Urine Bacteria Ur Culture Indicated? 02/01/20 01/31/20 01/31/20 00:08 23:13 23:13 WBC RBC Hgb Hct POC Hct MCV MCH MCHC RDW Plt Count MPV Neut % (Auto) Lymph % (Auto) [place] % (Auto) Eos % (Auto) Baso % (Auto) Lymph # (Auto) [place] # (Auto) Eos # (Auto) Baso # (Auto) Seg Neutrophils % Lymphocytes % Monocytes % (Manual) Eosinophils % (Manual) Absolute Neutrophils Platelet Estimate RBC Morphology ABG Methemoglobin VBG pH VBG pCO2 VBG pO2 VBG HCO3 VBG Total CO2 VBG O2 Saturation VBG Base Excess VBG Lactic Acid Carboxyhemoglobin Total Hemoglobin POC Sodium Sodium 130 L POC Potassium Potassium 4.1 POC Chloride Chloride 88 L Carbon Dioxide 17 L POC Total CO2 Anion Gap 25.0 H POC BUN BUN 24 H Creatinine 2.4 H POC Creatinine GFR Calculation 27 Glucose 546 H* POC Glucose Hemoglobin A1c Estim Average Glucose Uric Acid Calcium 8.3 L POC WB Ioniz Calcium Phosphorus Magnesium Total Bilirubin Direct Bilirubin GGT AST ALT Alkaline Phosphatase Lactate Dehydrogenase CK-MB (CK-2) Troponin T 1.65 H* NT-Pro-B Natriuret Pep Total Protein Albumin Globulin Albumin/Globulin Ratio Triglycerides Beta-Hydroxybutyrate Procalcitonin 2.70 H Urine Color Urine Appearance Urine pH Ur Specific [place] Urine Protein Urine Glucose (UA) Urine Ketones Urine Occult Blood Urine Nitrate Urine Bilirubin Urine Urobilinogen Ur Leukocyte Esterase Urine RBC Urine WBC Ur Squamous Epith Cells Amorphous Crystals Urine Bacteria Ur Culture Indicated? 01/31/20 01/31/20 01/31/20 23:13 19:32 17:22 WBC RBC Hgb Hct POC Hct MCV MCH MCHC RDW Plt Count MPV Neut % (Auto) Lymph % (Auto) [place] % (Auto) Eos % (Auto) Baso % (Auto) Lymph # (Auto) [place] # (Auto) Eos # (Auto) Baso # (Auto) Seg Neutrophils % Lymphocytes % Monocytes % (Manual) Eosinophils % (Manual) Absolute Neutrophils Platelet Estimate RBC Morphology ABG Methemoglobin VBG pH VBG pCO2 VBG pO2 VBG HCO3 VBG Total CO2 VBG O2 Saturation VBG Base Excess VBG Lactic Acid 1.7 Carboxyhemoglobin Total Hemoglobin POC Sodium Sodium 132 L POC Potassium Potassium 3.4 POC Chloride Chloride 88 L Carbon Dioxide 22 POC Total CO2 Anion Gap 22.0 H POC BUN BUN 26 H Creatinine 2.2 H POC Creatinine GFR Calculation 30 Glucose 477 H* POC Glucose Hemoglobin A1c Estim Average Glucose Uric Acid Calcium 8.2 L POC WB Ioniz Calcium Phosphorus Magnesium Total Bilirubin 0.3 Direct Bilirubin GGT AST 88 H ALT 44 H Alkaline Phosphatase 170 H Lactate Dehydrogenase CK-MB (CK-2) Troponin T NT-Pro-B Natriuret Pep Total Protein 5.7 L Albumin 3.4 Globulin 2.3 Albumin/Globulin Ratio 1.5 Triglycerides Beta-Hydroxybutyrate Procalcitonin Urine Color Yellow Urine Appearance Hazy A Urine pH 5.0 Ur Specific [place] 1.018 Urine Protein >=500 A Urine Glucose (UA) >=500 A Urine Ketones 20 A Urine Occult Blood 0.20 Urine Nitrate Negative Urine Bilirubin Negative Urine Urobilinogen Negative Ur Leukocyte Esterase Negative Urine RBC 3 Urine WBC 5 H Ur Squamous Epith Cells < 1 Amorphous Crystals Few A Urine Bacteria None Ur Culture Indicated? No 01/31/20 01/31/20 01/31/20 15:32 15:32 15:31 WBC RBC Hgb Hct POC Hct Pending MCV MCH MCHC RDW Plt Count MPV Neut % (Auto) Lymph % (Auto) [place] % (Auto) Eos % (Auto) Baso % (Auto) Lymph # (Auto) [place] # (Auto) Eos # (Auto) Baso # (Auto) Seg Neutrophils % Lymphocytes % Monocytes % (Manual) Eosinophils % (Manual) Absolute Neutrophils Platelet Estimate RBC Morphology ABG Methemoglobin VBG pH VBG pCO2 VBG pO2 VBG HCO3 VBG Total CO2 VBG O2 Saturation VBG Base Excess VBG Lactic Acid Carboxyhemoglobin Total Hemoglobin POC Sodium Pending Sodium TNP 124 L POC Potassium Pending Potassium TNP 4.8 POC Chloride Pending Chloride TNP 79 L Carbon Dioxide TNP 7 L* POC Total CO2 Pending Anion Gap TNP 38.0 H POC BUN Pending BUN TNP 72 H Creatinine TNP 5.3 H* POC Creatinine Pending GFR Calculation TNP 10 Glucose TNP 1143 H* POC Glucose Pending Hemoglobin A1c Estim Average Glucose Uric Acid 6.4 Calcium TNP 8.0 L POC WB Ioniz Calcium Pending Phosphorus 5.8 H 5.9 H* Magnesium 2.0 Total Bilirubin TNP 0.2 Direct Bilirubin < 0.2 GGT 75 H AST TNP 59 H ALT TNP 41 H Alkaline Phosphatase TNP 182 H Lactate Dehydrogenase 271 H CK-MB (CK-2) Troponin T 0.49 H* NT-Pro-B Natriuret Pep Total Protein TNP 5.9 Albumin TNP 3.4 Globulin TNP 2.5 Albumin/Globulin Ratio TNP 1.4 Triglycerides 525 H Beta-Hydroxybutyrate 12.35 H Procalcitonin Urine Color Urine Appearance Urine pH Ur Specific [place] Urine Protein Urine Glucose (UA) Urine Ketones Urine Occult Blood Urine Nitrate Urine Bilirubin Urine Urobilinogen Ur Leukocyte Esterase Urine RBC Urine WBC Ur Squamous Epith Cells Amorphous Crystals Urine Bacteria Ur Culture Indicated? 01/31/20 01/31/20 01/31/20 12:12 11:58 11:58 WBC 13.1 H RBC 2.80 L Hgb 8.9 L Hct 33.5 L POC Hct 29 L MCV 119.6 H MCH 31.8 MCHC 26.6 L RDW 14.0 Plt Count 257 MPV 12.8 H Neut % (Auto) 90.7 H Lymph % (Auto) 1.6 L [place] % (Auto) 7.5 Eos % (Auto) 0 Baso % (Auto) 0.2 Lymph # (Auto) 0.21 L [place] # (Auto) 0.98 H Eos # (Auto) 0 Baso # (Auto) 0.02 Seg Neutrophils % Lymphocytes % Monocytes % (Manual) Eosinophils % (Manual) Absolute Neutrophils 11.84 H Platelet Estimate RBC Morphology ABG Methemoglobin 0.2 L VBG pH 7.09 L* VBG pCO2 13.9 L* VBG pO2 150.8 H VBG HCO3 4.1 L* VBG Total CO2 4.6 L* VBG O2 Saturation 87.5 H VBG Base Excess -24 L VBG Lactic Acid Carboxyhemoglobin 10.9 H Total Hemoglobin 8.6 L POC Sodium 116 L* Sodium POC Potassium 8.2 H* Potassium POC Chloride 89 L Chloride Carbon Dioxide POC Total CO2 6 L* Anion Gap POC BUN 88 H BUN Creatinine POC Creatinine 5.9 H* GFR Calculation Glucose POC Glucose > 700 H* Hemoglobin A1c Estim Average Glucose Uric Acid Calcium POC WB Ioniz Calcium 0.97 L Phosphorus Magnesium Total Bilirubin Direct Bilirubin GGT AST ALT Alkaline Phosphatase Lactate Dehydrogenase CK-MB (CK-2) Troponin T NT-Pro-B Natriuret Pep Total Protein Albumin Globulin Albumin/Globulin Ratio Triglycerides Beta-Hydroxybutyrate Procalcitonin Urine Color Urine Appearance Urine pH Ur Specific [place] Urine Protein Urine Glucose (UA) Urine Ketones Urine Occult Blood Urine Nitrate Urine Bilirubin Urine Urobilinogen Ur Leukocyte Esterase Urine RBC Urine WBC Ur Squamous Epith Cells Amorphous Crystals Urine Bacteria Ur Culture Indicated? 01/31/20 11:57 WBC RBC Hgb Hct POC Hct 30 L MCV MCH MCHC RDW Plt Count MPV Neut % (Auto) Lymph % (Auto) [place] % (Auto) Eos % (Auto) Baso % (Auto) Lymph # (Auto) [place] # (Auto) Eos # (Auto) Baso # (Auto) Seg Neutrophils % Lymphocytes % Monocytes % (Manual) Eosinophils % (Manual) Absolute Neutrophils Platelet Estimate RBC Morphology ABG Methemoglobin VBG pH VBG pCO2 VBG pO2 VBG HCO3 VBG Total CO2 VBG O2 Saturation VBG Base Excess VBG Lactic Acid Carboxyhemoglobin Total Hemoglobin POC Sodium 123 L Sodium 121 L POC Potassium 4.7 Potassium 7.2 H* POC Chloride 90 L Chloride 75 L Carbon Dioxide 5 L* POC Total CO2 10 L Anion Gap 41.0 H POC BUN 69 H BUN 74 H Creatinine 5.2 H* POC Creatinine 5.7 H* GFR Calculation 11 Glucose 1409 H* POC Glucose 700 H Hemoglobin A1c Estim Average Glucose Uric Acid Calcium 8.3 L POC WB Ioniz Calcium 1.07 L Phosphorus Magnesium Total Bilirubin 0.2 Direct Bilirubin GGT AST 35 ALT 39 Alkaline Phosphatase 184 H Lactate Dehydrogenase CK-MB (CK-2) Troponin T NT-Pro-B Natriuret Pep Total Protein 5.9 Albumin 3.7 Globulin 2.2 Albumin/Globulin Ratio 1.7 Triglycerides Beta-Hydroxybutyrate 16.10 H Procalcitonin Urine Color Urine Appearance Urine pH Ur Specific [place] Urine Protein Urine Glucose (UA) Urine Ketones Urine Occult Blood Urine Nitrate Urine Bilirubin Urine Urobilinogen Ur Leukocyte Esterase Urine RBC Urine WBC Ur Squamous Epith Cells Amorphous Crystals Urine Bacteria Ur Culture Indicated? Discharge Plan Patient/Caregiver Discharge Instructions Diet: NPO Prescriptions: New atorvastatin 40 mg Tablet 40 mg PO DAILY Qty: 30 RF: 0 trazodone 50 mg Tablet 50 mg PO QHS Qty: 1 RF: 0 lorazepam 2 mg/mL Solution 0.5 mg IV Q4-6HP PRN (Reason: Anxiety/agitation) 2 Days Qty: 3 RF: 0 heparin (porcine) 5,000 unit/mL Solution 5,000 unit subcut Q12 10 Days Qty: 20 RF: 0 metoprolol tartrate 5 mg/5 mL Solution 2.5 mg IV Q5M PRN (Reason: Tachyarrhythmias) Qty: 2 RF: 0 sodium chloride 0.9 % (flush) [Monoject Prefill Advanced NS] Syringe 10 ml IV UD PRN (Reason: Flush) Qty: 500 RF: 0 pantoprazole 40 mg recon soln 40 mg IV QDAY Qty: 10 RF: 0 Continued ramelteon 8 mg tablet 8 mg PO QHS PRN (Reason: sleep) 30 Days Qty: 30 RF: 2 mirtazapine 30 mg tablet 30 mg PO QHS 90 Days Qty: 90 RF: 1 clopidogrel [Plavix] 75 mg tablet 75 mg PO QDAY RF: 0 insulin lispro [Humalog KwikPen Insulin] 100 unit/mL insulin pen See Rx Instructions .ROUTE .COMPLEX RF: 0 Discontinued simvastatin 40 mg tablet 40 mg PO QPM Qty: 90 RF: 0 buprenorphine 7.5 mcg/hour patch weekly 1 patch TRANSDERMA Q7D Qty: 12 RF: 0 trazodone 50 mg tablet 100 mg PO QHS Qty: 180 RF: 0 lisinopril 40 mg Tablet 40 mg PO QDAY RF: 0 Jessica-Porsha Rx 1-60-300 mg-mg-mcg Tablet 1 tab PO QDAY RF: 0 No Action (DME) blood sugar diagnostic strip See Dose Instructions dose .ROUTE .MEDSUPPLY RF: 0 (DME) insulin syringe-needle U-100 1 EACH syringe 0 unit .Route .MEDSUPPLY RF: 0 (DME) pen needle, diabetic 1 EACH needle 0 unit .Route .MEDSUPPLY RF: 0 Follow Up Plan Follow up with: Celestino Larkin PA-C [Primary Care Provider] - Patient Disposition: [facility] Prognosis: Critical Discharge Orders: Discharge Order (Routine); Ordered 02/01/20 Ordered By: Irina BOLES VTE Deep Vein Thrombosis/Pulmonary Embolism Present on Admission: No
[2020-02-01] MEDS ORDERED: 0.9 % SODIUM CHLORIDE 10 ML SYRINGE IV PRN (12:10)
[2020-02-01 12:36] LABS: Blood Urea Nitrogen 35 mg/dL (8-23); Calcium 8.1 mg/dL (8.6-10.4); Carbon Dioxide 16 mmol/L (22-30); Chloride 92 mmol/L (96-108); Glomerular Filtration Rate 20; Glucose 398 mg/dL (70-105)
--- NOTE | 2020-02-01 13:25 | General Surgery Procedure Note ---
Date of procedure: Note initiated : 02/01/20 at 1:17 pm Service Date, if different Left Femoral Central Line Time out completed Implied consent with obtunded pt critically ill on pressors Description: Understerile conditions both R and L IJ central lines attempted. Able to access vessel with needle easily with US on 1st pass - unable to pass wire flow distally. Suspect both thrombosed. L subclavian attempted - with kyphosis difficult anatomy - 3 attempt, unable to pass through clavicle and 1st rib. Pt uncooperative and moving - felt further attempts hazardous. R subclavian not attempted as active AVF on R UE. L groin then placed easily. Needle passed medial to groin pulse. 2nd pass with flash of dark non pulsatile blood. Wire threaded easily. needle removed. track dilated. pre flushed central line passed easily to 16cm. Sutured in place. all ports draw and flush easily. Dressing applied pelvis XR shows well positioned line with tip in iliac vessels No complications. Aiden [facility] General Surgery
[2020-02-01] MEDS: LORazepam 2 MG/ML VIAL IV PRN (13:58)
--- NOTE | 2020-02-01 14:40 | XRay Report ---
CLINICAL INFORMATION: central line placement COMPARISON: None. FINDINGS: Central line ostensibly enters the left common femoral vein with the tip overlying the expected location of the left common iliac vein. Dynamic screw and sideplate transfix a solid unified old intertrochanteric fracture of the left hip. No other osseous abnormality. Soft tissues normal. IMPRESSION: Left femoral line tip overlies the expected location of the left common iliac vein. Interpreted and Authenticated by: Herman Dyson 02/01/20
[2020-02-01 18:37] LABS: POC Blood Urea Nitrogen 11 mg/dL (6-20); POC CO2 17 mmol/L (22-30); POC Calcium, Ionized 1.17 mmEq/L (1.16-1.32); POC Chloride 107 mEq/L (96-108); POC Creatinine 0.7 mg/dL (0.6-1.2); POC Glucose, Random 165 mg/dL (70-105); POC Hematocrit 42 % (41-55); POC Potassium 3.6 mEql/L (3.3-5.1); POC Sodium 136 mEq/L (133-145)
[2020-02-01] MEDS ORDERED: 0.9 % SODIUM CHLORIDE 10 ML SYRINGE IV SCH (21:00)
[2020-02-02] MEDS ORDERED: BUPRENORPHINE 7.5 MCG/HR TD SCH (10:00)
== END 2020-02-01 14:05 | disposition short-term general hospital (02) | DRG 637 ==
LOC: ED 11:29 → ICU 15:53
PROVIDERS: ADMIT Internal Medicine; ATTEND Internal Medicine